=== PATIENT | female | born 1975 | race Hispanic/Latino ===

== ENCOUNTER 2022-04-24 14:02 | Inpatient (IN) | payer BC ==
--- OUTSIDE RECORDS SUMMARY | 2022-04-24 14:09 | XMS REPORT | Continuity of Care Document ---
:1975 Author Organization [facility] t Address [address] [place] [address] Care Team Providers Name Role Phone Emanuel CHIRSTIANSEN, Leisa Primary Care Physician LEISA CASTELLANOS Attending Clinician Unavailable Leisa Castellanos MD Attending Clinician Doctor Unassigned, [place] Attending Clinician Unavailable 2, [facility] Attending Clinician Unavailable Jaden HOOVER, Jori Attending Clinician JORI ESTRADA Attending Clinician Unavailable Payers Payer Name Policy Type Policy Number Effective Date Expiration Date S gemini [facility] - [id number] 2020 00:00:00 OUT OF STATE Problems Condition Condition Condition Status Onset Resolution Last Treating Co mments Source Name Details Category Date Date Treatment Clinician Date Obesity Obesity Disease Active Univers (BMI (BMI 8-09 ity of 30-39.9) 30-39.9) 00:00: [place] 00 Medical Branch Pharyngiti Pharyngiti Disease Active U nivers s due to s due to 5-06 ity of other other 00:00: [place] organism organism 00 Medica l Branch Depression Depression Disease Active U nivers , major, , major, 5-06 [place] of recurrent[place], [place] 00 [place] Anxiety, Anxiety, Disease Active Unive rs generalize generalize 5-06 it y of d d 00:00: [place] 00 Medical Branch Stress at Stress at Disease Active Uni vers work work 11-02 ity of 00:00: [place] [facility] Mood Mood Disease Active Univers changes changes 11-02 ity of 00:00: [place] [facility] Essential Essential Disease Active Uni vers hypertensi hypertensi 09-28 it y of on on 00:00: [place] [facility] Diabetes Diabetes Disease Active Unive rs mellitus mellitus 09-28 ity of type 2 type 2 00:00: [place] with with 00 Medical complicati complicati Br anch ons, ons, uncontroll uncontroll ed ed Mixed Mixed Disease Active Univers hyperlipid hyperlipid 09-28 it y of emia emia 00:00: [place] [facility] Need for Need for Disease Active Unive rs hepatitis hepatitis 09-28 ity of C C 00:00: [place] screening screening 00 [facility] test test Branch PCOS PCOS Disease Active Univers (polycysti (polycysti 09-28 it [place] of c ovarian c ovarian 00:[place] syndrome[place] syndrome) 00 [facility] Encounter Encounter Disease Active Uni vers to to 09-28 [place] of establish establish [place] care with 00 [facility] new doctor new doctor Br anch Need for Need for Disease Active Unive rs Tdap Tdap 09-28 [place] of vaccin[place] [facility] 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 Social History Social Habit Start Date Stop Date Quantity Comments Source Alcohol intake 2022-02-06 2022-02-06 Ex-drinker [place] of 00:00:00 00:00:00 (finding) [facility] Exposure to 2022-01-26 2022-02-05 Not sure [facility] SARS-CoV-2 00:00:00 16:23:00 [facility] (event) Branch Tobacco use and 2022-02-05 2022-02-05 Smokeless tobacco Un iversity of exposure 00:00:00 00:00:00 non-user [facility] Sex Ass[birth year] At [birth year] Universit y of 00:00:00 00:00:00 [facility] Smoking Status Start Date Stop Date Source Never smoked tobacco [facility] Medications Ordered Filled Start Stop Current Ordering Indication Dosage Frequency Signature Comments Components Source Medication Medication Date Date Medication? Clinician (SIG) Name Name Fenofibrate Yes [id number] 160mg Take 1 Univers 160 mg 9-29 tablet by ity of tablet 00:00: mouth in [place] 00 the Medical morning. Branch metFORMIN Yes [id number] 1000mg Take 1 Univers 1,000 mg 9-29 tablet by ity of tablet 00:00: mouth in [place] 00 the Medical morning Branch and 1 tablet in the evening. Take with meals. semaglutide Yes [id number] .5mg inject 0.5 Univers (OZEMPIC) 8-09 mg under ity of 0.25 mg or 00:00: the skin Eleazar as 0.5 mg(2 00 weekly. Medical mg/1.5 mL) Direction: [facility] PnIj Inject 0.25mg qWeek x 4 Weeks; then Inject 0.5mg qWeek x 4Weeks; then inject 1mg qWeek. semaglutide Yes [id number] .5mg inject 0.5 Univers (OZEMPIC) 8-09 mg under ity of 0.25 mg or 00:00: the skin Eleazar as 0.5 mg(2 00 weekly. Medical mg/1.5 mL) Direction: Bra [facility] PnIj Inject 0.25mg qWeek x 4 Weeks; then Inject 0.5mg qWeek x 4Weeks; then inject 1mg qWeek. semaglutide Yes [id number] .5mg inject 0.5 Univers (OZEMPIC) 8-09 mg under ity of 0.25 mg or 00:00: the skin Eleazar as 0.5 mg(2 00 weekly. Medical mg/1.5 mL) Direction: [facility] PnIj Inject 0.25mg qWeek x 4 Weeks; then Inject 0.5mg qWeek x 4Weeks; then inject 1mg qWeek. atorvastati Yes [id number] 40mg Take 1 Univers n 40 mg 6-09 tablet by ity of tablet 00:00: mouth at [place] 00 bedtime. Medical Branch atorvastati Yes [id number] 40mg Take 1 Univers n 40 mg 6-09 tablet by ity of tablet 00:00: mouth at [place] 00 bedtime. Medical Branch atorvastati Yes [id number] 40mg Take 1 Univers n 40 mg 6-09 tablet by ity of tablet 00:00: mouth at [place] 00 bedtime. Medical Branch docusate Yes [id number] 100mg Take 1 Un jaren (COLACE) 6-01 capsule by ity o f 100 mg 00:00: mouth 2 [place] capsule 00 (two) Medical times Branch daily as needed for Constipati on. docusate Yes [id number] 100mg Take 1 Un jaren (COLACE) 6-01 capsule by ity o f 100 mg 00:00: mouth 2 [place] capsule 00 (two) Medical times Branch daily as needed for Constipati on. docusate Yes [id number] 100mg Take 1 Un jaren (COLACE) 6-01 capsule by ity o f 100 mg 00:00: mouth 2 [place] capsule 00 (two) Medical times Branch daily as needed for Constipati on. metFORMIN Yes [id number] 1000mg Take 1 Univers 1,000 mg 5-06 tablet by ity of tablet 00:00: mouth 2 [place] 00 (two) Medical times Branch daily with meals. glimepiride Yes [id number] 4mg Take 1 Univers 4 mg tablet 5-06 tablet by ity of 00:00: mouth [place] 00 daily with Medical breakfast. Branch metoprolol Yes [id number] 50mg Take 1 U nivers succinate 5-06 tablet by ity o f XL 50 mg 24 00:00: mouth [place] hr tablet 00 daily. Medical Branch losartan-hy Yes [id number] 1{tbl} Take 1 Univers drochloroth 5-06 tablet by ity of iazide 00:00: mouth [place] 100-25 mg 00 daily. Medical per tablet Branch amLODIPine 0 Yes [id number] 5mg Take 1 U nivers 5 mg tablet 5-06 tablet by ity of 00:00: mouth [place] 00 daily. Medical Branch Fenofibrate 0 Yes [id number] 160mg Take 1 Univers 160 mg 5-06 tablet by ity of tablet 00:00: mouth [place] 00 daily. Medical Branch semaglutide 0 Yes [id number] 1mg inject 1 Univers (OZEMPIC) 1 5-06 mg under ity of mg/dose (2 00:00: the skin Eleazar as mg/1.5 mL) 00 weekly. Medica l PnIj Branch metFORMIN Yes [id number] 1000mg Take 1 Univers 1,000 mg 5-06 tablet by ity of tablet 00:00: mouth 2 [place] 00 (two) Medical times Branch daily with meals. glimepiride 0 Yes [id number] 4mg Take 1 Univers 4 mg tablet 5-06 tablet by ity of 00:00: mouth [place] 00 daily with Medical breakfast. Branch metoprolol 0 Yes [id number] 50mg Take 1 U nivers succinate 5-06 tablet by ity o f XL 50 mg 24 00:00: mouth [place] hr tablet 00 daily. Medical Branch losartan-hy 0 Yes [id number] 1{tbl} Take 1 Univers drochloroth 5-06 tablet by ity of iazide 00:00: mouth [place] 100-25 mg 00 daily. Medical per tablet Branch amLODIPine 0 Yes [id number] 5mg Take 1 U nivers 5 mg tablet 5-06 tablet by ity of 00:00: mouth [place] 00 daily. Medical Branch Fenofibrate 0 Yes [id number] 160mg Take 1 Univers 160 mg 5-06 tablet by ity of tablet 00:00: mouth [place] 00 daily. Medical Branch semaglutide 0 Yes [id number] 1mg inject 1 Univers (OZEMPIC) 1 5-06 mg under ity of mg/dose (2 00:00: the skin Ele[place] as mg/1.5 mL) 00 weekly. Medica l PnIj Branch glimepiride 0 Yes [id number] 4mg Take 1 Univers 4 mg tablet 5-06 tablet by ity of 00:00: mouth [place] 00 daily with Medical breakfast. Branch metoprolol Yes [id number] 50mg Take 1 U nivers succinate 5-06 tablet by ity o f XL 50 mg 24 00:00: mouth [place] hr tablet 00 daily. Medical Branch losartan-hy Yes [id number] 1{tbl} Take 1 Univers drochloroth 5-06 tablet by ity of iazide 00:00: mouth [place] 100-25 mg 00 daily. Medical per tablet Branch amLODIPine Yes [id number] 5mg Take 1 U nivers 5 mg tablet 5-06 tablet by ity of 00:00: mouth [place] 00 daily. Medical Branch semaglutide Yes [id number] 1mg inject 1 Univers (OZEMPIC) 1 5-06 mg under ity of mg/dose (2 00:00: the skin [place] as mg/1.5 mL) 00 weekly. Medica l PnIj Branch metFORMIN 2021- No [id number] 1000mg Take 1 Univers 1,000 mg 11-02 tablet by ity o f tablet 00:00: 00:00 mouth 2 [place] 00 :00 (two) Medical times Branch daily with meals. Fenofibrate 2021- No [id number] 160mg Take 1 Univers 160 mg 11-02 tablet by ity of tablet 00:00: 00:00 mouth [place] 00 :00 daily. Medical Branch fluconazole Yes [id number] 200mg Take 1 Univers (DIFLUCAN) 4-12 tablet by ity of 200 mg 00:00: mouth [place] tablet 00 daily. Medical Branch fluconazole Yes [id number] 200mg Take 1 Univers (DIFLUCAN) 4-12 tablet by ity of 200 mg 00:00: mouth [place] tablet 00 daily. Medical Branch fluconazole Yes [id number] 200mg Take 1 Univers (DIFLUCAN) 4-12 tablet by ity of 200 mg 00:00: mouth [place] tablet 00 daily. Medical Branch finasteride 0 Yes [id number] 1mg Take 1 Univers 1 mg tablet 4-01 tablet by ity of 00:00: mouth [place] 00 daily. Medical Branch finasteride Yes [id number] 1mg Take 1 Univers 1 mg tablet 4-01 tablet by ity of 00:00: mouth 00 daily. [facility] finasteride 2-0 Yes [id number] 1mg Take 1 Univers 1 mg tablet 4-01 tablet by ity of 00:00: mouth 00 daily. [facility] Immunizations Ordered Filled Immunization Date Status Comments [facility] e Immunization Name Name SARS-COV-2 COVID-19 2020-10-09 Completed Unive rsity of PFIZER VACCINE 00:00:00 [facility] SARS-COV-2 COVID-19 2020-10-09 Completed Unive rsity of PFIZER VACCINE 00:00:00 [facility] SARS-COV-2 COVID-19 2020-10-09 Completed Unive rsity of PFIZER VACCINE 00:00:00 [facility] Procedures Procedure Date / Time Performing Clinician Source Performed MEDICATION CORRESPONDENCE 2022-02-19 05:01:00 Doctor Todd, [facility] [place] [facility] Encounters Start End Encounter Admission Attending Care Care Encounter Source Date/Time Date/Time Type Type Clinicians Facility Department ID 2022-05-09 2022-05-09 [id number] Univers 14:40:00 14:40:00 LEISA almendarez [facility] 2022-03-25 2022-03-25 Telephone [facility] 1.2.840.114 [id number] Univers 00:00:00 00:00:00 Leisa RODRÍGUEZ 350.1.13.10 i ty of [place] PROF[place] [id number] [facility] [address] [facility] 2022-02-19 2022-02-19 Telephone [facility] 1.2.840.114 [id number] Univers 00:00:00 00:00:00 Leisa RODRÍGUEZ 350.1.13.10 i [place] 4[place]2.[place] [id number] [facility] 0[address] [facility] 2022-02-19 2022-02-19 Orders Doctor YATES 1.2.840.114 [id number] Univers 00:00:00 00:00:00 Only UnassignedYAN 350.1.13.10 ity of [place] [facility] 4.2.7.2.686 Ele[place] as [id number] [address] 2022-02-06 2022-02-06 [facility] 1.2.840.114 [id number] Univers 00:00:00 00:00:00 Leisa RODRÍGUEZ 350.1.13.10 i [place] 4[place] [id number] [address] 2022-02-06 2022-02-06 [facility]phone [facility] 1.2.840.114 [id number] Univers 00:00:00 00:00:00 Leisa RODRÍGUEZ 350.1.13.10 i ty of [address] PROF[place] [id number] [address] 2022-02-05 2022-02-05 [id number] Univers 15:40:00 16:51:44 LEISA almendarez [facility] 2022-02-05 2022-02-05 [facility] 1.2.840.114 [id number] Univers 15:40:00 16:51:44 Visit Leisa RODRÍGUEZ 350.1.13.10 i [place]2.[place] [id number] [address] 2022-01-22 2022-01-22 Nut Culler 2, Adc Lab [facility] 1.2.840.114 [id number] Univers 11:00:00 11:15:00 Visit Leisa Castellanos 350.1.13.10 [place] 4[place] [id number] [facility] [address] [facility] 2022-01-22 2022-01-22 [facility] [id number] Univers 11:00:00 11:00:00 LEISA almendarez [facility] 2021-12-25 2021-12-25 Telemedici [facility] 1.2.840.114 [id number] Univers 08:00:00 08:20:00 ne Visit Leisa RODRÍGUEZ 350.1.13.10 ity of [place] 4[place]2.[place].2.[place] PROF[place] [id number] Ct dical NAL 044 [facility] 2021-12-25 2021-12-25 [facility] [id number] Univers 08:00:00 08:00:00 LEISA almendarez [facility] 2021-12-25 2021-12-25 Outpatient R [facility] [id number] Univers 08:00:00 08:00:00 LEISA almendarez [facility] 2021-12-21 2021-12-21 Patient [facility] 1.2.840.114 [id number] Univers 00:00:00 00:00:00 Secure Msg Leisa RODRÍGUEZ 350.1.13.10 [facility]y [facility] 4.2.7.2.[place] [id number] Ct dical NAL [address] [facility] 2021-12-05 2021-12-05 Patient [facility] 1.2.840.114 [id number] Univers 00:00:00 00:00:00 Secure Msg Leisa RODRÍGUEZ 350.1.13.10 ity of [place] 4.2.7.2.[place] PROF[place] [id number] Ct dical NAL 044 [facility] 2021-11-28 2021-11-28 Patient [facility] 1.2.840.114 [id number] Univers 00:00:00 00:00:00 Secure Msg Leisa RODRÍGUEZ 350.1.13.10 ity [facility] 4.2.7.2.[place] PROF[place] [id number] Ct dical NAL [address] [facility] 2021-11-02 2021-11-02 Outpatient R [facility] [id number] Univers 13:20:00 14:17:40 LEISA almendarez [facility] 2021-11-02 2021-11-02 Office [facility] 1.2.840.114 [id number] Univers 13:20:00 14:17:40 Visit Leisa RODRÍGUEZ 350.1.13.10 i ty [facility] 4.2.7.[place] PROF[place] [id number] Ct dical NAL [address] [place] [address] 2021-10-04 2021-10-04 Patient Jaden [facility] 1.2.840.114 [id number] Univers 00:00:00 00:00:00 Secure Msg Jori RODRÍGUEZ 350.1.13.10 ity of [place] 4[place]2.7.2.[place] PROF[place] [id number] Ct dical NAL [address] [place] [address] 2021-10-04 2021-10-04 Patient Jaden [facility] 1.2.840.114 [id number] Univers 00:00:00 00:00:00 Secure Msg Jori RODRÍGUEZ 350.1.13.10 ity [facility] 4.2.7.2.[place] PROFESS[place] [id number] Ct dical NAL [address] [place] [address] 2021-10-01 2021-10-01 Outpatient R JORI ESTRADA [facility] [id number] Univers 15:30:00 16:37:07 JORI ESTRADA itmalinda [facility] 2021-10-01 2021-10-01 Office Jaden [facility] 1.2.840.114 [id number] [facility] Univers 15:30:00 16:37:07 Visit Jori RODRÍGUEZ 350.1.13.10 [place]2.[place] PROFESS[place] [id number] Ct dical NAL [address] [place] [address] 2021-10-01 2021-10-01 Outpatient R JORI ESTRADA [facility] [id number] Univers 10:00:00 10:00:00 JORI ESTRADA itmalinda [facility] 2021-09-28 2021-09-28 Nut Culler 2, Adc Lab [facility] 1.2.840.114 [id number] Univers 11:30:00 11:45:00 Visit Leisa Castellanos 350.1.13.10 ity [facility] 4.2.7.[place] PROF[place] [id number] Ct dical NAL 353 [facility] 2021-09-28 2021-09-28 [facility] [id number] Univers 11:30:00 11:30:00 LEISA malinda [facility] 2021-09-28 2021-09-28 [facility] 1.2.840.114 [id number] Univers 10:00:00 11:00:38 Visit Leisa RODRÍGUEZ 350.1.13.10 i [place] 4[place] PROF[place] [id number] Ct dical NAL 044 [facility] 2021-09-28 2021-09-28 Outpatient R EMANUEL [facility] [id number] [facility] 10:00:00 11:00:38 [facility] 2021-09-28 2021-09-28 [facility] 1.2.840.114 [id number] Univers 00:00:00 00:00:00 Leisa RODRÍGUEZ 350.1.13.10 i [place] 4[place] [id number] [facility] NAL 044 [facility] Results This patient has no known results.
[2022-04-24 14:35] LABS: Urine Blood Negative (Negative); Urine Glucose 2+ (Negative); Urine Protein Negative (Negative); Urine Specific Gravity 1.015 (1.005-1.030)
[2022-04-24] MEDS ORDERED: NA CHLORIDE 0.9% 1,000 ML ONE (14:40)
[2022-04-24] MEDS ORDERED: KETOROLAC 30 MG/ML INJ ONE (14:40)
[2022-04-24] MEDS ORDERED: ONDANSETRON 4 MG/2 ML VIAL ONE (14:40)
[2022-04-24 14:50] LABS: Hematocrit 37.1 % (36.0-45.0); MCV 82.1 fL (80-100); MPV 8.1 fL (7.6-11.3); RBC Red Blood Cell Count 4.51 M/uL (3.86-4.86)
[2022-04-24 14:52] LABS: Urine RBC <5 /HPF (None Seen)
--- NOTE | 2022-04-24 15:02 | RAD REPORT ---
EXAM DESCRIPTION: CT - Stone Protocol - 04/24/2022 2:43 pm CLINICAL HISTORY: flankp ain COMPARISON: CTSTONE PROTOCOL dated 10/11/2014 TECHNIQUE: Axial 3 mm thick images were obtained without oral or IV contrast. The [id number] span s the entirety of the system including uppermost abdomen and lung bases. All CT scans are performed using dose optimization technique as appropriate and may include automated exposure control or mA/KV adjustment according to patient size. FINDINGS: No hydronephrosis is present and no obstructing ureteral calculi. No suspicious renal mass es. Isodense masses and pyelonephritis are not excluded on a stone protocol CT scan. No significant a drenal finding. Bilateral perinephric stranding is similar to the prior study. No nonobstructing calc doessa seen. Mostly contracted urinary bladder shows no suspicious findings. Uterus and right ovary show no suspicious findings. Left ovary is enlarged compared to 2015 study due to in the 2.5 centimeter left ovarian cyst. Liver and spleen show no suspicious findings. Liver attenuation supports mild diffuse fatty infiltrat ion. No gallbladder or biliary tree abnormality. The body and tail of the pancreas appear mildly demetrio ested or edematous compared to the 2015 study. No solid or cystic mass seen on noncontrast imaging. N o abnormal stranding or edema around the uncinate process or head of the pancreas. No suspicious bowel findings. No appendicitis or other active process. No mass or bulky lymphadenopathy. Fat extends into the origin of each inguinal canal. No free air, fr ee fluid pneumatosis. No significant bony abnormality. IMPRESSION: The body and tail of the pancreas in the adjacent fatty tissue show mild edema change wh en compared with the 2015 study. Correlation is needed with any clinical or laboratory findings of mi ld pancreatitis. No hydronephrosis, obstructing calculus or acute finding. Proximally 2.5 centimeter left ovarian cyst. Fatty infiltration of the liver. Isodense masses and pyelonephritis are not excluded on stone protocol technique.
[2022-04-24 15:29] LABS: Blood Morphology Comment NOT SEEN (NOT SEEN)
--- NOTE | 2022-04-24 15:34 | RAD REPORT ---
EXAM DESCRIPTION: RAD - Chest Single View - 04/24/2022 3:17 pm CLINICAL HISTORY: CHEST PAIN COMPARISON: None TECHNIQUE: AP portable chest image was obtained 04/24/2022 3:17 pm . FINDINGS: No focal lung parenchymal process. Body habitus, under penetrated portable technique and s hallow inspiration accentuate heart, vasculature and lung markings. No significant failure or volume overload identified. Heart and vasculature are normal. No measurable pleural effusion and no pneumothorax. No acute bony abnormality seen. No acute aortic findings suspected. IMPRESSION: No acute cardiopulmonary process.
[2022-04-24 15:41] LABS: Platelet Estimate INCR; Platelets, Giant PRESENT
[2022-04-24] MEDS ORDERED: MORPHINE 4 MG/ML SYR ONE ×2 (16:07→18:13)
[2022-04-24 16:45] LABS: Potassium 4.7 mmol/L (3.5-5.1)
[2022-04-24 16:46] LABS: Albumin 3.5 g/dL (3.4-5.0); Bilirubin Total 0.6 mg/dL (0.2-1.0); Protein, Total 8.3 g/dL (6.4-8.2); Troponin High Sensitivity 3.1 (<58.9)
[2022-04-24] MEDS ORDERED: INSULIN -REGULAR HUMAN 50 UNIT/0.5 ML ML ONE ×2 (17:00→23:38)
--- NOTE | 2022-04-24 17:17 | ER ---
Nurse's Notes [facility] Name: Tabatha Berrios Age: 46 yrs Sex: Female : 1975 Arrival Date: 04/24/2022 Time: 14:08 Bed 16 Private MD: Diagnosis: Acute pancreatitis without necrosis or infection, unspecified;Hyperglycemia, unspecified Presentation: 04/24 14:47 Chief complaint: Patient states: DENIZ flank pain - radiates to lower abdomen. C/O right ld1 neck pain. Coronavirus screen: At this time, the client does not indicate any symptoms associated with coronavirus-19. Ebola Screen: No symptoms or risks identified at this time. Initial Sepsis Screen: Does the patient meet any 2 criteria? No. Patient's initial sepsis screen is negative. Does the patient have a suspected source of infection? No. Patient's initial sepsis screen is negative. Risk Assessment: Do you want to hurt yourself or someone else? Patient reports no desire to harm self or others. Onset of symptoms was April 24, 2022. 14:47 Method Of Arrival: Ambulatory ld1 14:47 Acuity: ANGEL 3 ld1 Triage Assessment: 14:17 General: Appears in no apparent distress. comfortable, Behavior is calm, cooperative, ld1 appropriate for age. Pain: Complains of pain in low back area, right lower quadrant and left lower quadrant Pain radiates to abdomen Pain currently is 6 out of 10 on a pain scale. Quality of pain is described as throbbing, Pain began suddenly, Is continuous. EENT: No signs and/or symptoms were reported regarding the EENT system. Neuro: Level of Consciousness is awake, alert, obeys commands, Oriented to person, place, time, situation. Cardiovascular: Capillary refill < 3 seconds Patient's skin is warm and dry. Respiratory: Airway is patent Respiratory effort is even, unlabored. GI: Abdomen is round non-distended, Reports lower abdominal pain, upper abdominal pain. GI: Reports nausea. : No signs and/or symptoms were reported regarding the genitourinary system. Derm: No signs and/or symptoms reported regarding the dermatologic system. Musculoskeletal: No signs and/or symptoms reported regarding the musculoskeletal system. 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 - Social history:: Smoking status: Patient denies any tobacco usage or history of. Patient/guardian denies using alcohol. Screenin:33 Abuse screen: Denies threats or abuse. Nutritional screening: No deficits noted. ap3 Tuberculosis screening: No symptoms or risk factors identified. Fall Risk None identified. Assessment: 19:00 General: Appears in no apparent distress. uncomfortable, Behavior is calm, cooperative, jb4 appropriate for age. Pain: Complains of pain in low back area and abdomen Pain does not radiate. Pain currently is 8 out of 10 on a pain scale. Neuro: Level of Consciousness is awake, alert, obeys commands, Oriented to person, place, time, situation. Cardiovascular: Patient's skin is warm and dry. Respiratory: Airway is patent Respiratory effort is even, unlabored, Respiratory pattern is regular. GI: Abdomen is round non-distended, obese. : No signs and/or symptoms were reported regarding the genitourinary system. EENT: No signs and/or symptoms were reported regarding the EENT system. Derm: Skin is intact, Skin is pink, warm \T\ dry. Musculoskeletal: Circulation, motion, and sensation intact. Range of motion: intact in all extremities. 20:00 Reassessment: Patient appears in no apparent distress at this time. Patient and/or jb4 family updated on plan of care and expected duration. Pain level reassessed. Patient is alert, oriented x 3, equal unlabored respirations, skin warm/dry/pink. 21:22 Reassessment: Patient appears in no apparent distress at this time. Patient and/or jb4 family updated on plan of care and expected duration. Pain level reassessed. Patient is alert, oriented x 3, equal unlabored respirations, skin warm/dry/pink. Vital Signs: 14:17 BP 175 / 107; Pulse 101; Resp 18; Temp 97.3(O); Pulse Ox 100% on R/A; Weight 95.25 kg; ld1 Height 5 ft. 3 in. (160.02 cm); Pain 6/10; 16:18 BP 154 / 97; Pulse 97; Pulse Ox 100% on R/A; ap3 17:32 BP 152 / 98; Pulse 87; Pulse Ox 98% on R/A; ap3 19:00 BP 142 / 78; Pulse 95; Resp 18; Pulse Ox 98% on R/A; jb4 19:45 BP 139 / 95; Pulse 101; Resp 18; Pulse Ox 93% on R/A; jb4 21:00 BP 137 / 95; Pulse 98; Resp 18; Pulse Ox 95% on 2 lpm NC; jb4 14:17 Body Mass Index 37.20 (95.25 kg, 160.02 cm) ld1 21:00 Desats while sleeping jb4 ED Course: 14:08 Patient arrived in ED. rg4 14:09 Twyla Issa FNP-C is PHCP. kb 14:09 Bennett Cid DO is Attending Physician. kb 14:17 Arm band placed on right wrist. ld1 14:35 Zakiya Tejada, CLAIRE is Primary Nurse. ap3 14:36 Urine Microscopic Only Sent. zm 14:45 CT Stone Protocol In Process Unspecified. EDMS 14:48 Triage completed. ld1 15:19 Chest Single View XRAY In Process Unspecified. EDMS 17:16 Gary Kaiser MD is Hospitalizing Provider. kb 17:33 Patient has correct armband on for positive identification. ap3 21:23 No provider procedures requiring assistance completed. Patient admitted, IV remains in jb4 place. Administered Medications: 14:58 Drug: NS 0.9% 1000 ml Route: IV; Rate: 1 bolus; Site: left antecubital; ap3 19:10 Follow up: Response: No adverse reaction; IV Status: Completed infusion; IV Intake: lg3 1000ml 14:58 Drug: Zofran (Ondansetron) 4 mg Route: IVP; Site: left antecubital; ap3 18:23 Follow up: Response: No adverse reaction; Nausea is decreased ap3 14:58 Drug: Ketorolac 15 mg Route: IVP; Site: left antecubital; ap3 16:11 Follow up: Response: No adverse reaction ap3 16:10 Drug: morphine 4 mg Route: IVP; Infused Over: 4 mins; Site: left antecubital; ap3 17:09 Follow up: Response: No adverse reaction; Pain is unchanged, physician notified ap3 17:04 Drug: Insulin Regular Human 10 units {Co-Signature: db (Theresa Almaguer RN).} Route: ap3 IVP; Site: left antecubital; 18:22 Follow up: Response: No adverse reaction ap3 18:16 Drug: morphine 4 mg Route: IVP; Infused Over: 4 mins; Site: left antecubital; ap3 04/25 06:46 Follow up: Response: No adverse reaction; Marked relief of symptoms; RASS: Alert and lg3 Calm (0) 04/24 19:29 Drug: Dilaudid (HYDROmorphone) 0.5 mg Route: IVP; Site: left antecubital; jb4 04/25 06:46 Follow up: Response: No adverse reaction; Marked relief of symptoms; RASS: Alert and lg3 Calm (0) Medication: 04/24 17:33 VIS not applicable for this client. ap3 Intake: 19:10 IV: 1000ml; Total: 1000ml. lg3 Outcome: 17:17 Decision to Hospitalize by Provider. kb 21:23 Admitted to ER Hold. Please see [facility] for further documentation. jb4 21:23 Condition: stable 21:23 Discharge instructions given to patient, Instructed on the need for admit, Demonstrated understanding of instructions. 04/25 17:09 Admitted to ICU accompanied by nurse, accompanied by tech, via wheelchair, room 8, on ko1 monitor, with chart, Report called to Leonor Condition: stable 17:11 Patient left the ED. ko1 Signatures: Dispatcher [employer] EDMS Twyla Issa FNP-C FNP-Nubia Wylie James, RN RN jb4 Zakiya Tejada RN RN ap3 Aletha Rosenbaum RN RN lg3 Lee Ann Sparks RN RN carol1 Beverly Taveras Kathy RN RN ko1 Theresa echevarria
--- NOTE | 2022-04-24 17:17 | EDPHYS ---
Physician Documentation [facility] Name: Tabatha Berrios Age: 46 yrs Sex: Female : 1975 Arrival Date: 04/24/2022 Time: 14:08 Bed 16 Private MD: ED Physician Bennett Cid HPI: 04/24 17:26 This 46 yrs old Female presents to ER via Ambulatory with complaints of kb Nausea, Back Pain, Flank Pain. 17:27 The patient presents with abdominal pain in the left upper quadrant. Onset: The kb symptoms/episode began/occurred this morning. The symptoms radiate to left back. Associated signs and symptoms: none. The symptoms are described as constant. Modifying factors: The symptoms are alleviated by nothing, the symptoms are aggravated by nothing. Severity of pain: At its worst the pain was moderate in the emergency department the pain is unchanged. The patient has not experienced similar symptoms in the past. The patient has not recently seen a physician. Patient reports left upper quadrant pain that radiates to the back.. 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 - Social history:: Smoking status: Patient denies any tobacco usage or history of. Patient/guardian denies using alcohol. ROS: 17:27 Constitutional: Negative for fever, chills, and weight loss. kb 17:27 Abdomen/GI: Positive for abdominal pain, Negative for nausea, vomiting, and diarrhea. 17:27 All other systems are negative. Exam: 17:26 Constitutional: This is a well developed, well nourished patient who is awake, alert, kb and in no acute distress. Head/Face: Normocephalic, atraumatic. ENT: Moist Mucous membranes Cardiovascular: Regular rate and rhythm with a normal S1 and S2. No gallops, murmurs, or rubs. No pulse deficits. Respiratory: Respirations even and unlabored. No increased work of breathing. Talking in full sentences Skin: Warm, dry with normal turgor. Normal color. MS/ Extremity: Pulses equal, no cyanosis. Neurovascular intact. Full, normal range of motion. Neuro: Awake and alert, GCS 15, oriented to person, place, time, and situation. Moves all extremities. Normal gait. Psych: Awake, alert, with orientation to person, place and time. Behavior, mood, and affect are within normal limits. 17:26 Abdomen/GI: Inspection: obese Bowel sounds: normal, Palpation: soft, in all quadrants, moderate abdominal tenderness, in the left upper quadrant. Vital Signs: 14:17 BP 175 / 107; Pulse 101; Resp 18; Temp 97.3(O); Pulse Ox 100% on R/A; Weight 95.25 kg; ld1 Height 5 ft. 3 in. (160.02 cm); Pain 6/10; 16:18 BP 154 / 97; Pulse 97; Pulse Ox 100% on R/A; ap3 17:32 BP 152 / 98; Pulse 87; Pulse Ox 98% on R/A; ap3 19:00 BP 142 / 78; Pulse 95; Resp 18; Pulse Ox 98% on R/A; jb4 19:45 BP 139 / 95; Pulse 101; Resp 18; Pulse Ox 93% on R/A; jb4 21:00 BP 137 / 95; Pulse 98; Resp 18; Pulse Ox 95% on 2 lpm NC; jb4 14:17 Body Mass Index 37.20 (95.25 kg, 160.02 cm) ld1 21:00 Desats while sleeping jb4 MDM: 14:23 Patient medically screened. kb 17:15 Data reviewed: vital signs, nurses notes. Data interpreted: Pulse oximetry: on room air kb is 100 %. Interpretation: normal. Counseling: I had a detailed discussion with the patient and/or guardian regarding: the historical points, exam findings, and any diagnostic results supporting the discharge/admit diagnosis, lab results, radiology results, the need for further work-up and treatment in the hospital. 17:26 ED course: Discussed diagnosis with patient. Patient states her brother who also has kb problems with pancreatitis due to elevated triglycerides. States she has never had it before. Denies alcohol use.. 04/24 14:23 Order name: CBC with Diff; Complete Time: 15:57 kb 04/24 14:23 Order name: CMP; Complete Time: 16:56 kb 04/24 14:23 Order name: Lipase; Complete Time: 16:56 kb 04/24 14:23 Order name: Urine Microscopic Only; Complete Time: 14:53 kb 04/24 14:23 Order name: Troponin HS; Complete Time: 16:56 kb 04/24 14:36 Order name: Urine Dipstick-Ancillary; Complete Time: 14:37 EDMS 04/24 14:37 Order name: Urine --Ancillary (enter results); Complete Time: 20:21 bd 04/24 15:29 Order name: Manual Differential; Complete Time: 15:57 EDMS 04/24 17:35 Order name: SARS RAPID; Complete Time: 18:41 ap3 04/24 18:15 Order name: Lipid Profile; Complete Time: 01:56 kb 04/24 20:42 Order name: LDL, Direct; Complete Time: 01:56 EDMS 04/24 23:42 Order name: Glucose, Ancillary Testing; Complete Time: 00:16 EDMS 04/25 02:52 Order name: Hemoglobin A1c; Complete Time: 04:33 EDMS 04/25 04:27 Order name: CBC with Automated Diff; Complete Time: 04:33 EDMS 04/24 14:23 Order name: CT Stone Protocol; Complete Time: 15:04 kb 04/24 14:23 Order name: Chest Single View XRAY; Complete Time: 15:35 kb 04/25 05:02 Order name: Glucose, Ancillary Testing; Complete Time: 05:11 EDMS 04/25 05:53 Order name: Comprehensive Metabolic Panel; Complete Time: 11:26 EDMS 04/25 05:53 Order name: T4 Free; Complete Time: 11:26 EDMS 04/25 05:53 Order name: Lipase; Complete Time: 11:26 EDMS 04/25 05:53 Order name: Thyroid Stimulating Hormone; Complete Time: 11:26 EDMS 04/25 08:32 Order name: Triglycerides Level; Complete Time: 11:26 EDMS 04/25 08:43 Order name: LDL, Direct; Complete Time: 11: EDMS 04/25 11:18 Order name: Glucose, Ancillary Testing; Complete Time: 11:26 EDMS 04/25 13:14 Order name: Glucose, Ancillary Testing; Complete Time: 13:16 EDMS 04/25 14:08 Order name: Glucose, Ancillary Testing; Complete Time: 14:11 EDMS 04/25 15:18 Order name: Glucose, Ancillary Testing; Complete Time: 15:27 EDMS 04/25 15:53 Order name: Glucose, Ancillary Testing; Complete Time: 15:55 EDMS 04/24 14:23 Order name: IV Saline Lock; Complete Time: 19:10 kb 04/24 14:23 Order name: Labs collected and sent; Complete Time: 19:10 kb 04/24 14:23 Order name: Urine Dipstick-Ancillary (obtain specimen); Complete Time: 14:36 kb 04/24 16:04 Order name: Labs - recollect needed: recollect green top; Complete Time: 16:28 bd Administered Medications: 14:58 Drug: NS 0.9% 1000 ml Route: IV; Rate: 1 bolus; Site: left antecubital; ap3 19:10 Follow up: Response: No adverse reaction; IV Status: Completed infusion; IV Intake: lg3 1000ml 14:58 Drug: Zofran (Ondansetron) 4 mg Route: IVP; Site: left antecubital; ap3 18:23 Follow up: Response: No adverse reaction; Nausea is decreased ap3 14:58 Drug: Ketorolac 15 mg Route: IVP; Site: left antecubital; ap3 16:11 Follow up: Response: No adverse reaction ap3 16:10 Drug: morphine 4 mg Route: IVP; Infused Over: 4 mins; Site: left antecubital; ap3 17:09 Follow up: Response: No adverse reaction; Pain is unchanged, physician notified ap3 17:04 Drug: Insulin Regular Human 10 units {Co-Signature: db (Theresa Almaguer RN).} Route: ap3 IVP; Site: left antecubital; 18:22 Follow up: Response: No adverse reaction ap3 18:16 Drug: morphine 4 mg Route: IVP; Infused Over: 4 mins; Site: left antecubital; ap3 04/25 06:46 Follow up: Response: No adverse reaction; Marked relief of symptoms; RASS: Alert and lg3 Calm (0) 04/24 19:29 Drug: Dilaudid (HYDROmorphone) 0.5 mg Route: IVP; Site: left antecubital; jb4 04/25 06:46 Follow up: Response: No adverse reaction; Marked relief of symptoms; RASS: Alert and lg3 Calm (0) Disposition: 04/24 19:39 Co-signature as Attending Physician, Bennett BUNCH was immediately available on-site ms3 in the Emergency Department for consultation in the care of the patient.. Disposition Summary: 04/24/22 17:17 Hospitalization Ordered Hospitalization Status: Inpatient Admission kb Provider: Gary Kaiser Condition: Stable kb Problem: new kb Symptoms: are unchanged kb Bed/Room Type: Standard kb Location: Intensive Care Unit(04/25/22 16:08) em1 Room Assignment: 5-(04/25/22 16:08) em1 Diagnosis - Acute pancreatitis without necrosis or infection, unspecified kb - Hyperglycemia, unspecified kb Forms: - Medication Reconciliation Form kb - SBAR form kb Signatures: Dispatcher [employer] EDMS Twyla Issa, CONTROL ELECTRICIAN-C CONTROL ELECTRICIAN-Ckb Sara Simeon Eric em1 Art Zhu CONTROL ELECTRICIAN-C CONTROL ELECTRICIAN-Cla1 Montana Rothman, RN RN karla4 Zakiya Tejada RN RN [email or web address] Dena Villaseñor, RN RN eb1 Bennett Cid DO DO ms3 Lee Ann Sparks RN RN ld1 Aletha Rosenbaum RN lg3 Theresa Almaguer RN db Corrections: (The following items were deleted from the chart) 18:45 17:17 Telemetry/MedSurg (Inpatient) kb eb1 18:45 17:17 kb eb1 04/25 16:08 04/24 18:45 [facility] ER HOLD eb1 em1 04/25 16:08 04/24 18:45 ERHOLD- eb1 em1
[2022-04-24 18:35] LABS: SARS-CoV-2 Antigen Rapid Res Negative (Negative)
[2022-04-24] MEDS ORDERED: HYDROMORPHONE HCL 0.5 MG/0.5 ML INJ ONE ×2 (19:18→23:47)
--- NOTE | 2022-04-24 19:39 | P.HP ---
Certification for Inpatient Patient admitted to: Inpatient With expected LOS: >2 Midnights Patient will require the following post-hospital care: None Practitioner: I am a practitioner with admitting privileges, knowledge of patient current condition, hospital course, and medical plan of care. Services: Services provided to patient in accordance with Admission requirements found in Title 42 Section 412.3 of the Code of Federal Regulations Patient History Date of Service: 04/24/22 Reason for admission: Acute pericarditis History of Present Illness: 46-year-old female with history of diabetes mellitus type [id number], hypertension, hyperlipidemia, hypertriglyceridemia presents to the emergency department for severe epigastric pain that began today, pain radiates to her back. She is evaluated in the emergency department her labs were significant for sodium 130 chloride 97 glucose 470 lipase 11,666 CT abdomen pelvis performed without IV contrast revealed the body and tail the pancreas and the adjacent fatty tissue showed mild edema change when compared to 2018 study correlation is needed with any clinical laboratory findings of mild pancreatitis. Lipid panel pending, she reports her brother has chronic pancreatitis related to hypertriglyceridemia. ED provider wishes to admit for further evaluation and management of acute pancreatitis. Allergies No Known Drug Allergies Allergy (Unverified 10/14/14 00:04) Unknown - Past Medical/Surgical History -: Diabetes mellitusnot insulin-dependent -: Hyperlipidemia/hypertriglyceridemia -: Hypertension -: None Psychosocial/ Personal History: Patient is employed at [employer], lives at home with mother/family - Family History Brother -: Hypertension, Diabetes, Other (see notes) (Pancreatitis) Sister -: Hypertension, Diabetes - Social History Smoking Status: Never smoker Alcohol use: No CD- Drugs: No Caffeine use: Yes Place of Residence: Home Review of Systems 10-point ROS is otherwise unremarkable Gastrointestinal: Nausea, Abdominal Pain Physical Examination - Physical Exam General: Alert, In no apparent distress, Oriented x3 HEENT: Atraumatic, PERRLA, Mucous membr. moist/pink, EOMI, Sclerae nonicteric Neck: Supple, 2+ carotid pulse no bruit, No LAD, Without JVD or thyroid abnormality Respiratory: Clear to auscultation bilaterally, Normal air movement Cardiovascular: Regular rate/rhythm, Normal S1 S2 Capillary refill: <2 Seconds Gastrointestinal: Normal bowel sounds, Tenderness (Moderate epigastric tendern ess) Musculoskeletal: No tenderness Integumentary: No rashes Neurological: Normal speech, Normal strength at 5/5 x4 extr, Normal tone, Normal affect Lymphatics: No axilla or inguinal lymphadenopathy - Studies Laboratory Data (last 24 hrs) 04/24/22 16:22: Sodium 130 L, Potassium 4.7, BUN 15, Creatinine 0.89, Glucose 470 H*, Total Bilirubin 0.6, AST 69 H, ALT 37, Alkaline Phosphatase 74, Lipase 04722 H 04/24/22 14:34: WBC 8.70, Hgb 15.2 H, Hct 37.1, Plt Count 348 Assessment and Plan - Plan Assessment: Acute pancreatitis Diabetes type [id number]-bvadprz-fofyizzqo with hyperglycemia Hyperlipidemia/hypertriglyceridemia Hypertension Plan: Acute pancreatitis: Unknown etiology, family history of hypertriglyceridemia induced pancreatitis. Patient does report history of hypertriglyceridemia lipid panel ordered and pending. No significant right upper quadrant tenderness, LFTs within normal limits, CT findings without concern for cholecystitis. Patient denies alcohol use. NPO, IVF, as needed pain medications and antiemetics, daily lipase level. Follow lipid panel may require insulin drip if there is significant hypertriglyceridemia. Diabetes type [id number]-szyigqe-[id number] with hyperglycemia: Every 6 hours Accu- Chek, sliding scale insulin. A1c in the morning. If triglycerides significantly elevated would require insulin drip for management. Hyperlipidemia/hypertriglyceridemia: Lipid panel pending, patient takes fenofibrate, atorvastatin at home. Continues medications when she is tolerating p.o. Again require insulin drip if there are significant hypertriglyceridemia. Hypertension: Hold oral medication. DVT PPX: Lovenox Code status: Full Discharge Plan: Home Plan to discharge in: Greater than 2 days - Advance Directives Does patient have a Living Will: No Does patient have a Durable POA for Healthcare: No - Code Status/Comfort Care Code Status Assessed: Yes (Full code) Critical Care: No Time Spent Managing Pts Care (In Minutes): 70
[2022-04-24 19:56] LABS: Urine Specific Gravity/Preg 1.015 (1.005-1.030)
[2022-04-24 20:28] LABS: HDL Cholesterol 14 mg/dL (40-60)
[2022-04-24 20:41] LABS: LDL, Direct 108 mg/dL (100-129)
[2022-04-24] MEDS ORDERED: INSULIN -REGULAR HUMAN 50 UNIT/0.5 ML ML SQ SCH (21:17)
[2022-04-24] MEDS: Ringers Lactate 1,000 ML IV SCH (21:17)
[2022-04-24] MEDS ORDERED: Ringers Lactate 1,000 ML IV ONE (21:32)
[2022-04-24] MEDS: INSULIN -REGULAR HUMAN 50 UNIT/0.5 ML ML SQ SCH (23:40)
[2022-04-25] MEDS: HYDROMORPHONE HCL 0.5 MG/0.5 ML INJ IV PRN ×5 (00:03→20:33)
[2022-04-25] MEDS ORDERED: Ringers Lactate 1,000 ML IV ONE (03:34)
[2022-04-25 03:56] LABS: Absolute Lymphocytes (CBC) 0.6 K/uL (0.7-4.9); Hematocrit 35.3 % (36.0-45.0); Lymphocytes % 4.2 % (15.3-44.8); MCV 81.3 fL (80-100); MPV 8.8 fL (7.6-11.3); RBC Red Blood Cell Count 4.34 M/uL (3.86-4.86)
[2022-04-25] MEDS: Ringers Lactate 1,000 ML IV SCH ×4 (03:57→23:57)
[2022-04-25] MEDS ORDERED: HYDROMORPHONE HCL 0.5 MG/0.5 ML INJ ONE ×3 (05:00→15:30)
[2022-04-25] MEDS ORDERED: INSULIN -REGULAR HUMAN 50 UNIT/0.5 ML ML ONE (05:01)
[2022-04-25] MEDS: INSULIN -REGULAR HUMAN 50 UNIT/0.5 ML ML SQ SCH ×2 (05:10)
[2022-04-25 05:50] LABS: Albumin 2.8 g/dL (3.4-5.0); Bilirubin Total 0.8 mg/dL (0.2-1.0); Protein, Total 7.2 g/dL (6.4-8.2); Thyroid Stimulating Hormone 0.459 uIU/mL (0.360-3.740)
[2022-04-25] MEDS ORDERED: INFLUENZA VACCINE (for 6+ mo) 0.5 ML DOSE IMVAC ONE (08:00)
[2022-04-25 08:42] LABS: LDL, Direct 111 mg/dL (100-129)
[2022-04-25] MEDS: ENOXAPARIN 40 MG/0.4 ML SQ SCH (08:43)
[2022-04-25] MEDS: ONDANSETRON 4 MG/2 ML VIAL IV PRN ×3 (08:44→22:01)
[2022-04-25] MEDS ORDERED: ONDANSETRON 4 MG/2 ML VIAL ONE ×2 (08:47→15:30)
[2022-04-25] MEDS ORDERED: ENOXAPARIN 40 MG/0.4 ML SQ ONE (08:48)
[2022-04-25] MEDS ORDERED: GLUCAGON 1 MG/VIAL IM PRN (10:47)
[2022-04-25] MEDS ORDERED: D50W 25 GM/50 ML SYRINGE IV PRN (10:47)
[2022-04-25] MEDS ORDERED: D10W 125 ML IV PRN (10:54)
[2022-04-25] MEDS: D5.45NS W/KCL 20MEQ 20 MEQ/1,000 ML BAG IV SCH ×3 (11:00→20:29)
[2022-04-25] MEDS ORDERED: D5.45NS W/KCL 20MEQ 1,000 ML IV ONE (11:30)
[2022-04-25] MEDS: INSULIN -REGULAR HUMAN 100 UNIT in NA CHLORIDE 0.9% 100 ML IV SCH ×2 (12:05→13:07)
--- NOTE | 2022-04-25 17:09 | P.PN ---
Date of Service: 04/25/22 Subjective: pain improved pain meds helping starting to get hungry ROS: 10 point ROS as noted above, otherwise negative Physical exam GEN: Alert, oriented, NAD, obese HEENT: Normal conjunctiva, sclera anicteric CV: Regular rate and rhythm, no edema Pulm: Nonlabored respirations on room air ABD: Soft, moderate-severe tenderness in epigastrium, mild tenderness in LLQ Neuro: Normal speech, normal affect Problem List Acute pancreatitis secondary to hypertriglyceridemia Diabetes type [id number]-vsrlleqmv with hyperglycemia Hyperlipidemia/hypertriglyceridemia Hypertension Patient feels some improvement in her pain Advance to some sips with ice chips Repeat lipase improving Triglycerides significantly increased Start insulin drip, change LR to dextrose containing fluids Pain medication, antiemetics as needed VTE: Lovenox Code: Full Dispo: Home, 2 to 3 days continue ICU level of care Time Spent Managing Pts Care (In Minutes): 35
[2022-04-25 20:15] LABS: LDL, Direct 35 mg/dL (100-129)
[2022-04-26] MEDS: HYDROMORPHONE HCL 0.5 MG/0.5 ML INJ IV PRN ×6 (00:07→21:15)
[2022-04-26] MEDS ORDERED: INSULIN -REGULAR HUMAN 50 UNIT/0.5 ML ML ONE (03:03)
[2022-04-26] MEDS ORDERED: NA CHLORIDE 0.9% 100 ML IV ONE (03:03)
[2022-04-26] MEDS: INSULIN -REGULAR HUMAN 100 UNIT in NA CHLORIDE 0.9% 100 ML IV SCH ×2 (03:04→17:44)
[2022-04-26] MEDS: D5.45NS W/KCL 20MEQ 20 MEQ/1,000 ML BAG IV SCH ×5 (03:21→23:00)
[2022-04-26 05:22] LABS: Absolute Lymphocytes (CBC) 0.9 K/uL (0.7-4.9); Hematocrit 36.6 % (36.0-45.0); Lymphocytes % 6.4 % (15.3-44.8); MCV 81.7 fL (80-100); MPV 7.9 fL (7.6-11.3); RBC Red Blood Cell Count 4.47 M/uL (3.86-4.86)
[2022-04-26] MEDS: Ringers Lactate 1,000 ML IV SCH ×3 (05:22→19:57)
[2022-04-26 05:56] LABS: LDL, Direct 53 mg/dL (100-129)
[2022-04-26 06:02] LABS: Albumin 2.2 g/dL (3.4-5.0); Bilirubin Total 0.7 mg/dL (0.2-1.0); Magnesium 1.7 mg/dL (1.8-2.4); Protein, Total 6.6 g/dL (6.4-8.2)
[2022-04-26 06:05] LABS: Potassium 3.6 mmol/L (3.5-5.1)
--- NOTE | 2022-04-26 06:18 | P.PN ---
Date of Service: 04/26/22 Subjective: feeling better, but still in pain hungry +flatus ROS: 10 point ROS as noted above, otherwise negative Physical exam GEN: Alert, oriented, NAD, obese HEENT: Normal conjunctiva, sclera anicteric CV: Regular rate and rhythm, no edema Pulm: Nonlabored respirations on room air ABD: Soft, moderate tenderness in epigastrium, mild-moderate tenderness in LLQ Neuro: Normal speech, normal affect Problem List Acute pancreatitis secondary to hypertriglyceridemia Diabetes type [id number]-ycnelqi-hjknvzxpv with hyperglycemia Hyperlipidemia/hypertriglyceridemia Hypertension LLQ pain L ovarian cyst Patient feels some improvement in her epigastric pain; hungry tolerated ice chips, advance to clears Repeat lipase improving Triglycerides improved, now increased again titrate insulin drip, on d5 1/2NS increase IVF rate LLQ pain, CT noted 2.5cm ovarian cyst, will obtain U/S to further evaluate. Patient noted h/o of ?PCOS, and irregular periods, recently more crampy pain Pain medication, antiemetics as needed VTE: Lovenox Code: Full Dispo: Home, 2 to 3 days continue ICU level of care while on drip Time Spent Managing Pts Care (In Minutes): 35
[2022-04-26] MEDS: ENOXAPARIN 40 MG/0.4 ML SQ SCH (08:09)
[2022-04-26] MEDS: ONDANSETRON 4 MG/2 ML VIAL IV PRN ×3 (09:49→23:00)
--- NOTE | 2022-04-26 10:01 | RAD REPORT ---
EXAM DESCRIPTION: US - Transvaginal Study Probe - 04/26/2022 9:42 am CLINICAL HISTORY: Pelvic pain/left ovarian cysts COMPARISON: CT abdomen April 24, 2022 FINDINGS: The uterus measures 8 x 3 x 4 cm. A fibroid is not seen. The endometrial stripe measures 8 millimeters. A fibroid is not seen. Cervical nabothian cysts. 3.6 centimeter left ovarian cyst. Blood flow is present to the left ovary. Right ovary not seen secon jennifer to overlying bowel gas The right and left adnexa unremarkable No significant free fluid is seen. IMPRESSION: 3.6 centimeter left ovarian cyst
[2022-04-26 19:30] LABS: LDL, Direct 52 mg/dL (100-129)
[2022-04-26] MEDS: HYDROMORPHONE HCL 1 MG/ML INJ IV PRN (23:00)
[2022-04-27] MEDS: Ringers Lactate 1,000 ML IV SCH (00:55)
[2022-04-27] MEDS: HYDROMORPHONE HCL 1 MG/ML INJ IV PRN ×5 (04:19→21:56)
[2022-04-27] MEDS: ONDANSETRON 4 MG/2 ML VIAL IV PRN ×3 (04:19→19:50)
[2022-04-27] MEDS: D5.45NS W/KCL 20MEQ 20 MEQ/1,000 ML BAG IV SCH ×4 (04:20→19:42)
[2022-04-27 04:31] LABS: Absolute Lymphocytes (CBC) 1.1 K/uL (0.7-4.9); Lymphocytes % 8.2 % (15.3-44.8); MCV 82.2 fL (80-100); MPV 7.1 fL (7.6-11.3); RBC Red Blood Cell Count 4.26 M/uL (3.86-4.86)
[2022-04-27 04:42] VITALS: BMI 40.2
[2022-04-27 04:54] LABS: Bilirubin Total 0.6 mg/dL (0.2-1.0); Magnesium 1.9 mg/dL (1.8-2.4); Potassium 3.4 mmol/L (3.5-5.1); Protein, Total 6.6 g/dL (6.4-8.2)
[2022-04-27 05:09] LABS: LDL, Direct 70 mg/dL (100-129)
--- NOTE | 2022-04-27 06:10 | P.PN ---
Date of Service: 04/27/22 Subjective: last night, felt dilaudid was helping as much, increased to 1mg from 0.5 feels better this morning, less tachycardic pain in epigastrium and LLQ, +flatus ROS: 10 point ROS as noted above, otherwise negative Physical exam GEN: Alert, oriented, NAD, obese HEENT: Normal conjunctiva, sclera anicteric CV: sinus tachycardia (105), no edema Pulm: Nonlabored respirations on room air ABD: Soft, moderate tenderness in epigastrium, mild-moderate tenderness in LLQ Neuro: Normal speech, normal affect Problem List Acute pancreatitis secondary to hypertriglyceridemia Diabetes type [id number] with hyperglycemia Hyperlipidemia/hypertriglyceridemia Hypertension LLQ pain L ovarian cyst did not tolerate CLD much yesterday pain medication increased tolerating ice chips / sips of water lipase improving TG labile, but overall trending down continue insuliln drip continue d5 1/2NS if unable to advance diet, consider PPN tomorrow LLQ pain reviewed CT, likely extension of inflammatory changes from tail of pancreas incidental ovarian cyst noted on CT - 2.5cm transvaginal U/S: 3.5 cm, normal blood flow to ovary, no other acute findings Pain medication, antiemetics as needed VTE: Lovenox Code: Full Dispo: Home, ~2-3 days continue ICU level of care while on drip Time Spent Managing Pts Care (In Minutes): 35
[2022-04-27] MEDS: INSULIN -REGULAR HUMAN 100 UNIT in NA CHLORIDE 0.9% 100 ML IV SCH ×2 (07:39→20:39)
[2022-04-27] MEDS: ENOXAPARIN 40 MG/0.4 ML SQ SCH (08:30)
[2022-04-27] MEDS ORDERED: POTASSIUM CL SA 10 MEQ TAB PO ONE (09:00)
[2022-04-27] MEDS ORDERED: POTASSIUM 25 MEQ EFFERV TAB PO ONE (09:00)
--- NOTE | 2022-04-27 11:11 | P.PN ---
Date of Service: 04/27/22 Subjective: last night, felt dilaudid was helping as much, increased to 1mg from 0.5 feels better this morning, less tachycardic pain in epigastrium and LLQ, +flatus ROS: 10 point ROS as noted above, otherwise negative Physical exam GEN: Alert, oriented, NAD, obese HEENT: Normal conjunctiva, sclera anicteric CV: sinus tachycardia (105), no edema Pulm: Nonlabored respirations on room air ABD: Soft, moderate tenderness in epigastrium, mild-moderate tenderness in LLQ Neuro: Normal speech, normal affect Problem List Acute pancreatitis secondary to hypertriglyceridemia Diabetes type [id number] with hyperglycemia Hyperlipidemia/hypertriglyceridemia Hypertension LLQ pain L ovarian cyst did not tolerate CLD much yesterday pain medication increased tolerating ice chips / sips of water lipase improving tolerated ice chips, advance to clears Repeat lipase improving Triglycerides improved, now increased again titrate insulin drip, on d5 1/2NS increase IVF rate LLQ pain, CT noted 2.5cm ovarian cyst, will obtain U/S to further evaluate. Patient noted h/o of ?PCOS, and irregular periods, recently more crampy pain Pain medication, antiemetics as needed VTE: Lovenox Code: Full Dispo: Home, 2 to 3 days continue ICU level of care while on drip Time Spent Managing Pts Care (In Minutes): 35
[2022-04-27] MEDS ORDERED: BISACODYL 10 MG RECTAL SUPP PR PRN (11:47)
[2022-04-27] MEDS: PROMETHAZINE INJ 25 MG/ML AMP IV PRN ×2 (12:19→21:55)
[2022-04-27] MEDS: DOCUSATE NA 100 MG CAP PO SCH (19:42)
[2022-04-28] MEDS: D5.45NS W/KCL 20MEQ 20 MEQ/1,000 ML BAG IV SCH ×2 (01:27→06:07)
[2022-04-28] MEDS: HYDROMORPHONE HCL 1 MG/ML INJ IV PRN ×2 (02:30→06:42)
[2022-04-28 05:07] LABS: MCV 82.4 fL (80-100); RBC Red Blood Cell Count 4.13 M/uL (3.86-4.86)
[2022-04-28 05:25] LABS: Albumin 1.9 g/dL (3.4-5.0); Bilirubin Total 0.8 mg/dL (0.2-1.0); Magnesium 1.7 mg/dL (1.8-2.4); Potassium 3.4 mmol/L (3.5-5.1); Protein, Total 6.3 g/dL (6.4-8.2)
--- NOTE | 2022-04-28 05:57 | P.PN ---
Date of Service: 04/28/22 Subjective: +BM last night feeling better today pain less severe ROS: 10 point ROS as noted above, otherwise negative Physical exam GEN: Alert, oriented, NAD, obese HEENT: Normal conjunctiva, sclera anicteric CV: sinus tachycardia (100-110), no edema Pulm: Nonlabored respirations on room air ABD: Soft, mild tenderness in epigastrium, mild tenderness in LLQ Neuro: Normal speech, normal affect Problem List Acute pancreatitis secondary to hypertriglyceridemia Diabetes type [id number]-wytrlqufd with hyperglycemia Hyperlipidemia/hypertriglyceridemia Hypertension LLQ pain L ovarian cyst TG and lipase levels much improved today. pain improved CLD this morning, advance to full liquid for dinner if tolerating well dc insulin drip, start semglee 20u, sliding scale, adjust as needed A1c: [address], likely extension of inflammatory changes from tail of pancreas incidental ovarian cyst noted on CT - 2.5cm transvaginal U/S: 3.5 cm, normal blood flow to ovary, no other acute findings Pain medication, antiemetics as needed VTE: Lovenox Code: Full Dispo: Home, ~1-2 days possible downgrade from ICU tonight/tomorrow, pending repeat TG/glc levels off drip Time Spent Managing Pts Care (In Minutes): 35
[2022-04-28] MEDS ORDERED: POTASSIUM CL SA 10 MEQ TAB PO ONE ×2 (06:30→13:28)
[2022-04-28] MEDS ORDERED: MAGNESIUM SULFATE 1 gm IVPB 1 GM/100 ML BAG IV ONE (06:30)
[2022-04-28 06:57] LABS: LDL, Direct 143 mg/dL (100-129)
[2022-04-28] MEDS: DOCUSATE NA 100 MG CAP PO SCH ×2 (08:31→20:59)
[2022-04-28] MEDS: ENOXAPARIN 40 MG/0.4 ML SQ SCH (08:31)
[2022-04-28] MEDS: ONDANSETRON 4 MG/2 ML VIAL IV PRN ×2 (08:31→15:36)
[2022-04-28] MEDS: INSULIN -REGULAR HUMAN 100 UNIT in NA CHLORIDE 0.9% 100 ML IV SCH (10:31)
[2022-04-28] MEDS: HYDROCODONE/APAP 5/325 MG TAB PO PRN ×3 (11:09→22:16)
[2022-04-28] MEDS ORDERED: D5.45NS W/KCL 20MEQ 20 MEQ/1,000 ML BAG IV SCH (11:30)
[2022-04-28] MEDS: INSULIN -REGULAR HUMAN 50 UNIT/0.5 ML ML SQ SCH ×3 (11:30→20:59)
[2022-04-28] MEDS ORDERED: D10W 250 ML BAG IV PRN (11:42)
[2022-04-28] MEDS ORDERED: INSULIN GLARGINE 100 UNIT/ML SQ SCH (12:00)
[2022-04-28] MEDS ORDERED: POTASSIUM 25 MEQ EFFERV TAB PO ONE (16:00)
[2022-04-28] MEDS: PROMETHAZINE INJ 25 MG/ML AMP IV PRN (19:28)
[2022-04-28] MEDS: HYDROMORPHONE HCL 0.5 MG/0.5 ML INJ IV PRN (20:05)
[2022-04-28 20:07] LABS: LDL, Direct 187 mg/dL (100-129)
[2022-04-29] MEDS: HYDROCODONE/APAP 5/325 MG TAB PO PRN ×3 (04:17→20:27)
[2022-04-29 05:25] LABS: Hematocrit 33.1 % (36.0-45.0); MCV 82.2 fL (80-100); MPV 6.6 fL (7.6-11.3); RBC Red Blood Cell Count 4.02 M/uL (3.86-4.86)
[2022-04-29 05:43] LABS: Bilirubin Total 1.2 mg/dL (0.2-1.0); Potassium 3.9 mmol/L (3.5-5.1); Protein, Total 6.4 g/dL (6.4-8.2)
[2022-04-29] MEDS: INSULIN GLARGINE 100 UNIT/ML SQ SCH (08:18)
[2022-04-29] MEDS: INSULIN -REGULAR HUMAN 50 UNIT/0.5 ML ML SQ SCH ×4 (08:19→22:03)
[2022-04-29] MEDS: DOCUSATE NA 100 MG CAP PO SCH ×2 (08:21→20:28)
[2022-04-29] MEDS: ENOXAPARIN 40 MG/0.4 ML SQ SCH (08:21)
[2022-04-29] MEDS: HYDROMORPHONE HCL 0.5 MG/0.5 ML INJ IV PRN ×3 (08:21→23:29)
[2022-04-29] MEDS: ONDANSETRON 4 MG/2 ML VIAL IV PRN ×3 (08:38→23:35)
--- NOTE | 2022-04-29 12:39 | P.PN ---
Date of Service: 04/29/22 Subjective: a few small BMs +flatus intermittent nausea and pain; at times 5-7/10, but less frequent ROS: 10 point ROS as noted above, otherwise negative Physical exam GEN: Alert, oriented, NAD, obese HEENT: Normal conjunctiva, sclera anicteric CV: sinus tachycardia (100-110), no edema Pulm: Nonlabored respirations on room air ABD: Soft, mild tenderness in epigastrium, mild tenderness in LLQ Neuro: Normal speech, normal affect Problem List Acute pancreatitis secondary to hypertriglyceridemia Diabetes type [id number]-nltcuka-yxxxjxiok with hyperglycemia Hyperlipidemia/hypertriglyceridemia Hypertension LLQ pain L ovarian cyst TG and lipase levels much improved today pain slowly improving continue full liquids insulin drip dc'd 04/28, started semglee 20u daily, sliding scale A1c: 10 restart home fenofibrate LLQ pain reviewed CT, likely extension of inflammatory changes from tail of pancreas incidental ovarian cyst noted on CT - 2.5cm transvaginal U/S: 3.5 cm, normal blood flow to ovary, no other acute findings Pain medication, antiemetics as needed if worsens, will get CT abdomen pancreatic protocol VTE: Lovenox Code: Full Dispo: Home, ~1-2 days downgrade, stable to get out of ICU Time Spent Managing Pts Care (In Minutes): 25
[2022-04-29 19:31] LABS: LDL, Direct 201 mg/dL (100-129)
[2022-04-29] MEDS ORDERED: FENOFIBRATE 160 MG TAB PO SCH (21:00)
[2022-04-29] MEDS ORDERED: METOPROLOL XL 50 MG TAB PO SCH (21:00)
[2022-04-30 04:36] LABS: Hematocrit 32.8 % (36.0-45.0); MCV 81.9 fL (80-100); MPV 6.4 fL (7.6-11.3)
[2022-04-30] MEDS: PROMETHAZINE INJ 25 MG/ML AMP IV PRN (04:43)
[2022-04-30 04:52] LABS: Albumin 1.9 g/dL (3.4-5.0); Bilirubin Total 0.8 mg/dL (0.2-1.0); Magnesium 1.7 mg/dL (1.8-2.4); Potassium 3.5 mmol/L (3.5-5.1); Protein, Total 6.5 g/dL (6.4-8.2)
[2022-04-30] MEDS: HYDROMORPHONE HCL 0.5 MG/0.5 ML INJ IV PRN (06:34)
[2022-04-30] MEDS: ONDANSETRON 4 MG/2 ML VIAL IV PRN (06:34)
[2022-04-30] MEDS: INSULIN -REGULAR HUMAN 50 UNIT/0.5 ML ML SQ SCH ×2 (07:30→11:30)
[2022-04-30] MEDS ORDERED: POTASSIUM 25 MEQ EFFERV TAB PO ONE (09:00)
[2022-04-30] MEDS: INSULIN GLARGINE 100 UNIT/ML SQ SCH (09:00)
[2022-04-30] MEDS: ENOXAPARIN 40 MG/0.4 ML SQ SCH (09:54)
[2022-04-30] MEDS: DOCUSATE NA 100 MG CAP PO SCH (09:55)
[2022-04-30] MEDS: HYDROCODONE/APAP 5/325 MG TAB PO PRN (10:56)
[2022-04-30 11:16] VITALS: O2SAT 94
--- NOTE | 2022-04-30 11:53 | P.DS ---
Admission Date: 04/24/22 Discharge Date: 04/30/22 Disposition: ROUTINE DISCHARGE Discharge Condition: FAIR Reason for Admission: Acute pericarditis Brief History of Present Illness: 46-year-old female with history of diabetes mellitus type [id number]-[id number]-xobasgdzj, hypertension, hyperlipidemia, hypertriglyceridemia presented to the emergency department for severe epigastric pain that began today, pain radiates to her back. She was evaluated in the emergency department her labs were significant for sodium 130 chloride 97 glucose [address] abdomen pelvis performed without IV contrast revealed the body and tail the pancreas and the adjacent fatty tissue showed mild edema change when compared to 2018 suggesting pancreatitis. She reported her brother has chronic pancreatitis related to hypertriglyceridemia. Patient admitted for further management. Hospital Course: Diagnosis Acute pancreatitis secondary to hypertriglyceridemia Diabetes type [id number]-[id number] with hyperglycemia Hyperlipidemia/hypertriglyceridemia Hypertension LLQ pain L ovarian cyst Patient admitted to the ICU and started on insulin drip for hypertriglyceridemia. Her triglyceride level and lipase level gradually improved with treatment. This was accompanied by improvement in her abdominal pain. She was transition from insulin drip to subcutaneous insulin-Lantus and insulin sliding scale. Patient later tolerated full liquid diet. She was started on her home dose fenofibrate. She had LLQ pain. CT abdomen and pelvis reported incidental ovarian cyst noted on CT - 2.5cm. Transvaginal U/S: 3.5 cm ovarian cyst, normal blood flow to ovary, no other acute findings Patient symptoms have improved. She is ambulating, lipase level has normalized. Patient is deemed clinically stable for discharge. Patient stated her blood sugar was well controlled on her home oral hypoglycemic and metformin regimen. Her oral diabetes medications have been resumed on discharge. Her fenofibrate is also resumed on discharge. Vital Signs/Physical Exam: Temp Pulse Resp BP Pulse Ox 97.8 F 106 H 18 140/85 96 04/30/22 08:00 04/30/22 08:00 04/30/22 10:56 04/30/22 08:00 04/30/22 10:56 General: Alert, In no apparent distress, Oriented x3 HEENT: Mucous membr. moist/pink Neck: Supple, JVD not distended Respiratory: Clear to auscultation bilaterally, Normal air movement Cardiovascular: No edema, Regular rate/rhythm, Normal S1 S2 Gastrointestinal: Soft and benign, Non-distended, No tenderness Musculoskeletal: No swelling Integumentary: No rashes, No cyanosis Neurological: Normal strength at 5/5 x4 extr Laboratory Data at Discharge: WBC 13.70 K/uL (4.3-10.9) H 04/30/22 04:17 Hgb 10.7 g/dL (12.0-15.0) L 04/30/22 04:17 Hct 32.8 % (36.0-45.0) L 04/30/22 04:17 Plt Count 321 K/uL (152-406) 04/30/22 04:17 Sodium 133 mmol/L (136-145) L 04/30/22 04:17 Potassium 3.5 mmol/L (3.5-5.1) 04/30/22 04:17 BUN 6 mg/dL (7-18) L 04/30/22 04:17 Creatinine 0.38 mg/dL (0.55-1.3) L 04/30/22 04:17 Glucose 193 mg/dL (74-106) H 04/30/22 04:17 Magnesium 1.7 mg/dL (1.8-2.4) L 04/30/22 04:17 Total Bilirubin 0.8 mg/dL (0.2-1.0) 04/30/22 04:17 AST 12 U/L (15-37) L 04/30/22 04:17 ALT 42 U/L (12-78) 04/30/22 04:17 Alkaline Phosphatase 101 U/L (45-117) 04/30/22 04:17 Triglycerides Cancelled 04/30/22 06:00 Cholesterol 79 mg/dL (<200) 04/24/22 18:57 LDL Cholesterol Direct 201 mg/dL (100-129) H 04/29/22 18:45 HDL Cholesterol 14 mg/dL (40-60) L 04/24/22 18:57 Cholesterol/HDL Ratio 5.64 04/24/22 18:57 Lipase 198 U/L (73-393) 04/28/22 04:38 Home Medications: Glimepiride [Amaryl] 4 mg PO BID 04/25/22 Losartan/Hydrochlorothiazide [Losartan-Hctz 100-25 mg Tab] 1 each PO DAILY 04/25/22 Metformin HCl 1,000 mg PO BID 04/25/22 Metoprolol Succinate 50 mg PO BEDTIME 04/25/22 Bisacodyl [Dulcolax*] 10 mg [place] DAILY PRN #10 supp 04/30/22 Docusate [Colace Cap] 100 mg PO BID #60 cap 04/30/22 Fenofibrate 160 mg PO BEDTIME #30 tab 04/30/22 Hydrocodone 5/APAP 325 [[place] 5/325*] 1 tab PO Q6H PRN #15 tab 04/30/22 New Medications: Docusate [Colace Cap] 100 mg PO BID #60 cap Bisacodyl [Dulcolax*] 10 mg [place] DAILY PRN #10 supp PRN Reason: Constipation Fenofibrate 160 mg PO BEDTIME #30 tab Hydrocodone 5/APAP 325 [[place] 5/325*] 1 tab PO Q6H PRN #15 tab PRN Reason: Pain Scale 5-7 (Moderate) Followup: NONE,NONE [Primary Care Provider] - Time spent managing pt's care (in minutes): 33
[2022-04-30 12:33] VITALS: BP 159/92; TEMP 97.5
== END 2022-04-30 14:21 | disposition home or self-care (01) | DRG 439 ==
LOC: ER 14:02 → ERHOLD 19:16 → 3RD-ICU 04-25 16:46 → 4TH 04-29 13:45
PROVIDERS: ADMIT Hospitalist; ATTEND Internal Medicine
DX: K85.90 Acute pancreatitis without necrosis or infection, unspecified (principal); Z68.41 Body mass index [BMI] 40.0-44.9, adult; E66.9 Obesity, unspecified; I10 Essential (primary) hypertension; E78.5 Hyperlipidemia, unspecified; E78.1 Pure hyperglyceridemia; E11.65 Type 2 diabetes mellitus with hyperglycemia; N83.202 Unspecified ovarian cyst, left side; Z79.84 Long term (current) use of oral hypoglycemic drugs; Z79.899 Other long term (current) drug therapy; Z20.822 Contact with and (suspected) exposure to COVID-19
CPT/HCPCS: 36415; 71045; 74176; 76377; 76830; 80053; 80061; 81003; 81015; 81025; 82947; 83036; 83690; 83735; 84132; 84439; 84443; 84478; 84484; 85025; 85027; 87811; 96361; 96374; 96375; 99285; J1170; J1650; J1815; J2405; J2550; J3475; J7030; J7120

== ENCOUNTER 2024-04-27 17:06 | Emergency (ER) | payer BC ==
--- OUTSIDE RECORDS SUMMARY | 2024-04-27 17:10 | XMS REPORT | Continuity of Care Document ---
Author Name Unknown Address [address] [facility] [address] [place] [address] [facility] thconnect Address [address] [facility] [address] [place] [address] Care Team Providers Care Batch Room Technician Name Role Phone Leisa Castellanos MD Primary Care Physician + [phone] LEISA CASTELLANOS Attending Clinician Unavailable Leisa Castellanos MD Attending Clinician + Leisa Castellanos MD Attending Clinician + Doctor Unassigned, [place] Attending Clinician U angeli Pob, [facility] Main Attending Clinician UnavailOskar Valdivia Attending Clinician + OSKAR IQBAL Attending Clinician Unavailable CHARLES WALDRON Attending Clinician Unavailable CHARLES WALDRON Attending Clinician Unavailable DIO VASQUEZ Attending Clinician UnavailDIO Treviño Attending Clinician UnavailTYLER Rothman Attending Clinician Unavailable Sarah Low PT Attending Clinician UnavailTyler Rothman MD Attending Clinician [phone] DEMOND_[email or web address]_S Attending Clinician UnavailCrystal Tolbert PTA Attending Clinician Unavail able Dio Vasquez MD Attending Clinician [phone], [facility] Attending Clinician Unavailable Jori Estrada NP Attending Clinician [phone] JORI ESTRADA Attending Clinician Unavailab yana [email or web address] Admitting Clinician Unavaila ble Payers Payer Name Policy Type Policy Number Effective Date Expirati on Date Source [place] [id number] 2020 00:00:[place] [id number] 2020 00:00:00 Problems Condition Name Condition Details Condition Category Status Onset Date Resolution Date Last Treatment Date Treating Clinician Comments Source Genital warts Genital warts Disease Active 6-25 00:00: 00 [facility] Condyloma acuminatum of the anogenital region Condyloma Acuminatum of the Anogenital Region Problem Active 2- 00:00: 00 [facility] Polyp of corpus uteri Polyp of Corpus Uteri Problem Active 2022-06 0-03 00:00: 00 [facility] Diabetes mellitus Diabetes Mellitus Problem Active 02-17 00:00: 00 [facility] Hyperchole sterolemia Hyperchole sterolemia Problem Active 02-17 00:00: 00 [facility] Hypertensi ve disorder Hypertensi ve Disorder Problem Active 02-17 00:00: 00 [facility] Pancreatit is Pancreatit is Problem Active 02-17 00:00: 00 [facility] Female stress incontinen ce Female Stress Incontinen ce Problem Active 02-17 00:00: 00 [facility] Irregular periods Irregular Periods Problem Active 02-17 00:00: 00 [facility] Human papillomav irus deoxyribon ucleic acid detected, high risk on cervical specimen Human Papillomav irus Deoxyribon ucleic Acid Detected, High Risk on Cervical Specimen Problem Active 02-17 00:00: 00 [facility] Low grade squamous intraepith elial lesion on cervical Papanicola ou smear Low Grade Squamous Intraepith elial Lesion on Cervical Papanicola ou Smear Problem Active 02-17 00:00: 00 [facility] Pelvic and perineal pain Pelvic and Perineal Pain Problem Active 02-17 00:00: 00 [facility] Gastroesop hageal reflux disease without esophagiti s Gastroesop hageal reflux disease without esophagiti s Disease Active 2023-0 5-19 00:00: 00 [facility] Slow transit constipati on Slow transit constipati on Disease Active 2-16 00:00: 00 [facility] Idiopathic acute pancreatit is without infection or necrosis Idiopathic acute pancreatit is without infection or necrosis Disease Active 2021-06 00:00: 00 [facility] Hospital discharge follow-up Hospital discharge follow-up Disease Active 2021-06 00:00: 00 [facility] Obesity (BMI 30-39.9) Obesity (BMI 30-39.9) Disease Active 8- 00:00: 00 [facility] Pharyngiti s due to other organism Pharyngiti s due to other organism Disease Active 11-02 00:00: 00 [facility] Depression , major, recurrent, mild Depression , major, recurrent, mild Disease Active 11-02 00:00: 00 [facility] Anxiety, generalize d Anxiety, generalize d Disease Active 11-02 00:00: 00 [facility] Stress at work Stress at work Disease Active 11-02 00:00: 00 [facility] Mood changes Mood changes Disease Active 11-02 00:00: 00 [facility] Encounter to establish care with new doctor Encounter to establish care with new doctor Disease Active 09-28 00:00: 00 [facility] Essential hypertensi on Essential hypertensi on Disease Active 09-28 00:00: 00 [facility] Diabetes mellitus type 2 with complicati ons, uncontroll ed Diabetes mellitus type 2 with complicati ons, uncontroll ed Disease Active - 00:00: 00 [facility] Mixed hyperlipid emia Mixed hyperlipid emia Disease Active 4- 00:00: 00 [facility] Need for hepatitis C screening test Need for hepatitis C screening test Disease Active 4- 00:00: 00 [facility] PCOS (polycysti c ovarian syndrome) PCOS (polycysti c ovarian syndrome) Disease Active 4 00:00: 00 [facility] Encounter to establish care with new doctor Encounter to establish care with new doctor Disease Active 4 00:00: 00 [facility] Need for Tdap vaccinatio n Need for Tdap vaccinatio n Disease Active 4 00:00: 00 [facility] Familial hyperchole steremia Familial hyperchole steremia Disease Active 4 00:00: 00 [facility] Stress incontinen ce of urine Stress incontinen ce of urine Disease Active 4 00:00: 00 [facility] 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 Disease Active 4 00:00: 00 [facility] Type 2 diabetes mellitus with obesity Type 2 diabetes mellitus with obesity Disease Active 4 00:00: 00 [facility] Inflammati on of cervix Inflammati on of Cervix Problem Active 2020-06 0-06 00:00: 00 [facility] Cervical intraepith elial neoplasia grade 1 Cervical Intraepith elial Neoplasia Grade 1 Problem Active 8-12 00:00: 00 [facility] Screening mammograph y Screening Mammograph y Problem Active 6-21 00:00: 00 [facility] Hyperlipid emia Hyperlipid emia Problem Active 4-02 00:00: 00 [facility] Acute vaginitis Acute Vaginitis Problem Active 4-02 00:00: 00 [facility] Atypical squamous cells of undetermin ed significan ce on cervical Papanicola ou smear Atypical Squamous Cells of Undetermin ed Significan ce on Cervical Papanicola ou Smear Problem Active 4-02 00:00: 00 [facility] Hyperglyce colby due to type 2 diabetes mellitus Hyperglyce colby Due to Type 2 Diabetes Mellitus Problem Active 4-02 00:00: 00 [facility] Essential hypertensi on Essential Hypertensi on Problem Active 3-09 00:00: 00 [facility] Contracept ion care education Contracept ion Care Education Problem Active 3-09 00:00: 00 [facility] Venereal disease screening Venereal Disease Screening Problem Active 309 00:00: 00 [facility] Gynecologi andrey examinatio n abnormal Gynecologi andrey Examinatio n Abnormal Problem Active 12-03 00:00: 00 [facility] 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 Dermopathy Due to Type 2 Diabetes Mellitus Problem Active 12-03 00:00: 00 [facility] Herniation of rectum into vagina Herniation of Rectum into Vagina Problem Active 12-03 00:00: 00 [facility] Dysmenorrh ea Dysmenorrh ea Problem Active 12-03 00:00: 00 [facility] Genuine stress incontinen ce Genuine Stress Incontinen ce Problem Active 12-03 00:00: 00 [facility] Excessive and frequent menstruati on Excessive and Frequent Menstruati on Problem Active 12-03 00:00: 00 [facility] Abscess of skin and/or subcutaneo us tissue Abscess of Skin And/or Subcutaneo us Tissue Problem Active 12-03 00:00: 00 [facility] Allergies, Adverse Reactions, Alerts Allergy Name Allergy Type Status Severity Reaction(s) Onset Date Inactive Date Treating Clinician Comments Source NO KNOWN ALLERGIE S Drug Class Active [facility] Social History Social Habit Start Date Stop Date Quantity Comments Source Gender identity [facility] Alcoholic beverage intake 2024-01-21 00:00:00 2024-01-21 00:00:00 Lifetime non-drinker (finding) [facility] Tobacco use and exposure 2023-12-23 00:00:00 2023-12-23 00:00:00 Smokeless tobacco non-user [facility] History of Social function 2023-10-16 00:00:00 2023-10-16 00:00:00 [facility] Alcohol intake 2023-10-16 00:00:00 2023-10-16 00:00:00 Ex-drinker (finding) [facility] Exposure to SARS-CoV-2 (event) 2022-11-05 00:00:00 2022-11-15 10:50:00 Not sure [facility] Sex assigned at 1975 00:00:00 1975 00:00:00 [facility] Smoking Status Start Date Stop Date Source Never smoked tobacco [facility] Medications Ordered Medication Name Filled Medication Name Start Date Stop Date Current Medication? Ordering Clinician Indication Dosage Frequency Signature (SIG) Comments Components Source tirzepatide 7.5 mg/0.5 mL subcutaneou s injection 03-29 00:00: 00 Yes [id number] 7.5mg inject 7.5 mg under the skin weekly. Start 2.5mg qWeek x 4 Weeks, then increase to 5mg qWeek x 4 Weeks, then increase to 7.5mg qWeek x 4 Weeks, the increase to 10mg qWeek. [facility] tirzepatide 7.5 mg/0.5 mL subcutaneou s injection 03-24 00:00: 00 03-29 00:00 :00 No [id number] 7.5mg inject 7.5 mg under the skin weekly. Start 2.5mg qWeek x 4 Weeks, then increase to 5mg qWeek x 4 Weeks, then increase to 7.5mg qWeek x 4 Weeks, the increase to 10mg qWeek. [facility] tirzepatide (MOUNJARO) 5 mg/0.5 mL subcutaneou s injection 14 00:00: 00 03-24 00:00 :00 No [id number] 5mg inject 5 mg under the skin weekly. Start 2.5mg SC qWeek x 4 Weeks, then increase to 5 mg SC qWeek [facility] rosuvastati n 40 mg tablet 01-20 00:00: 00 Yes [id number] 40mg Take 1 tablet by mouth at bedtime. [facility] tirzepatide (MOUNJARO) 2.5 mg/0.5 mL subcutaneou s injection 01-20 00:00: 00 03-24 00:00 :00 No [id number] 2.5mg inject 2.5 mg under the skin weekly. Start 2.5mg subcutaneo usly once a week for 4 Weeks, then increase to 5 mg subcutaneo usly once a week. [facility] tirzepatide (MOUNJARO) 5 mg/0.5 mL subcutaneou s injection 01-20 00:00: 00 02-10 00:00 :00 No [id number] 5mg inject 5 mg under the skin weekly. Start 2.5mg SC qWeek x 4 Weeks, then increase to 5 mg SC qWeek [facility] amLODIPine 5 mg tablet 10-15 00:00: 00 Yes [id number] TAKE 1 TABLET IN THE MORNING [facility] famotidine 40 mg tablet 10-15 00:00: 00 Yes [id number] 40mg Take 1 tablet by mouth in the morning. [facility] Fenofibrate 160 mg tablet 10-15 00:00: 00 Yes [id number] TAKE 1 TABLET IN THE MORNING [facility] glimepiride 4 mg tablet 10-15 00:00: 00 Yes [id number] TAKE 1 TABLET IN THE MORNING AND 1 TABLET IN THE EVENING [facility] losartan-hy drochloroth iazide 100-25 mg per tablet 10-15 00:00: 00 Yes [id number] TAKE 1 TABLET IN THE MORNING [facility] metFORMIN 1,000 mg tablet 10-15 00:00: 00 Yes [id number] TAKE 1 TABLET IN THE MORNING AND 1 TABLET IN THE EVENING WITH MEALS [facility] metoprolol succinate XL 50 mg 24 hr tablet 10-15 00:00: 00 Yes [id number] TAKE 1 TABLET IN THE MORNING [facility] empaglifloz in (JARDIANCE) 10 mg tablet 10-15 00:00: 00 Yes [id number] 10mg Take 1 tablet by mouth in the morning. [facility] atorvastati n 40 mg tablet 10-15 00:00: 00 01-20 00:00 :00 No [id number] 40mg Take 1 tablet by mouth at bedtime. [facility] icosapent ethyL (VASCEPA) 1 gram capsule 10-15 00:00: 00 01-14 04:59 :00 No [id number] 2g Take 2 capsules by mouth in the morning and 2 capsules in the evening. Do all this for 90 days. [facility] atorvastati n 40 mg tablet atorvastati n 40 mg tablet 08-20 00:00: 00 No atorvastat in 40 mg tablet [facility] Contrave 8 mg-90 mg tablet,exte nded release TAKE 2 TABLETS BY MOUTH IN THE MORNING AND 2 TABLETS IN THE EVENING FOR 30 DAYS Contrave 8 mg-90 mg tablet,exte nded release TAKE 2 TABLETS BY MOUTH IN THE MORNING AND 2 TABLETS IN THE EVENING FOR 30 DAYS 08-20 00:00: 00 No Contrave 8 mg-90 mg tablet,ext ended release TAKE 2 TABLETS BY MOUTH IN THE MORNING AND 2 TABLETS IN THE EVENING FOR 30 DAYS [facility] famotidine 40 mg tablet as needed famotidine 40 mg tablet as needed 08-20 00:00: 00 No famotidine 40 mg tablet as needed [facility] fenofibrate 160 mg tablet fenofibrate 160 mg tablet 08-20 00:00: 00 No fenofibrat e 160 mg tablet [facility] metformin 1,000 mg tablet metformin 1,000 mg tablet 08-20 00:00: 00 No metformin 1,000 mg tablet [facility] metoprolol succinate ER 50 mg tablet,exte nded release 24 hr metoprolol succinate ER 50 mg tablet,exte nded release 24 hr 08-20 00:00: 00 No metoprolol succinate ER 50 mg tablet,ext ended release 24 hr [facility] metFORMIN 1,000 mg tablet 08-08 00:00: 00 10-15 00:00 :00 No [id number] TAKE 1 TABLET IN THE MORNING AND 1 TABLET IN THE EVENING WITH MEALS [facility] naltrexone- bupropion 8-90 mg per tablet 2- 00:00: 00 09-04 05:59 :00 No [id number] 2{tbl} Take 2 tablets by mouth in the morning and 2 tablets in the evening. Do all this for 30 days. [facility] ATORVASTATI N 40 mg tablet - 00:00: 00 10-15 00:00 :00 No [id number] 40mg TAKE 1 TABLET AT BEDTIME [facility] naltrexone- bupropion (CONTRAVE) 8-90 mg per tablet -18 00:00: 00 08-05 00:00 :00 No [id number] 2{tbl} Take 2 tablets by mouth in the morning and 2 tablets in the evening. Do all this for 30 days. [facility] FENOFIBRATE 160 mg tablet 07-16 00:00: 00 10-15 00:00 :00 No [id number] TAKE 1 TABLET IN THE MORNING [facility] METOPROLOL SUCCINATE XL 50 mg 24 hr tablet 07-16 00:00: 00 10-15 00:00 :00 No [id number] TAKE 1 TABLET IN THE MORNING [facility] GLIMEPIRIDE 4 mg tablet 1-05 00:00: 00 10-15 00:00 :00 No [id number] TAKE 1 TABLET IN THE MORNING AND 1 TABLET IN THE EVENING [facility] LOSARTAN-HY DROCHLOROTH IAZIDE 100-25 mg per tablet 2022-06 2-08 00:00: 00 10-15 00:00 :00 No [id number] TAKE 1 TABLET IN THE MORNING [facility] AMLODIPINE 5 mg tablet 2022-06-24 00:00: 00 10-15 00:00 :00 No [id number] TAKE 1 TABLET IN THE MORNING [facility] Blood-Gluco se Sensor (FREESTYLE FRANTZ 3 SENSOR) Laura 2022-06 0- 00:00: 00 Yes Use as directed [facility] famotidine 40 mg tablet 11-15 00:00: 00 10-15 00:00 :00 No [id number] 40mg Take 1 tablet by mouth in the morning. [facility] metFORMIN 1,000 mg tablet 11-15 00:00: 00 08-08 00:00 :00 No [id number] 1000mg Take 1 tablet by mouth in the morning and 1 tablet in the evening. Take with meals. [facility] atorvastati n 40 mg tablet 11-15 00:00: 00 07-18 00:00 :00 No [id number] 40mg Take 1 tablet by mouth at bedtime. [facility] Fenofibrate 160 mg tablet 11-15 00:00: 00 07-16 00:00 :00 No [id number] 160mg Take 1 tablet by mouth in the morning. [facility] metoprolol succinate XL 50 mg 24 hr tablet 11-15 00:00: 00 07-16 00:00 :00 No [id number] 50mg Take 1 tablet by mouth in the morning. [facility] glimepiride 4 mg tablet 11-15 00:00: 00 07-04 00:00 :00 No [id number] 4mg Take 1 tablet by mouth in the morning and 1 tablet in the evening. [facility] losartan-hy drochloroth iazide 100-25 mg per tablet 11-15 00:00: 00 06-06 00:00 :00 No [id number] 1{tbl} Take 1 tablet by mouth in the morning. [facility] amLODIPine 5 mg tablet 11-15 00:00: 00 05-23 00:00 :00 No [id number] 5mg Take 1 tablet by mouth in the morning. [facility] pioglitazon e 15 mg tablet 11-15 00:00: 00 03-17 00:00 :00 No [id number] 15mg Take 1 tablet by mouth in the morning. [facility] amLODIPine 5 mg tablet 09-23 00:00: 00 11-15 00:00 :00 No [id number] 5mg Take 1 tablet by mouth in the morning. [facility] glimepiride 4 mg tablet 2023-0 3-24 00:00: 00 11-15 00:00 :00 No [id number] 4mg Take 1 tablet by mouth in the morning and 1 tablet in the evening. [facility] docusate (COLACE) 100 mg capsule 2-16 00:00: 00 03-17 00:00 :00 No [id number] 100mg Take 1 capsule by mouth 2 (two) times daily as needed for Constipati on. [facility] lipase-prot ease-amylas e (CREON) 36,000-114, 000- 180,000 unit CpDR 2021-06 00:00: 00 03-17 00:00 :00 No [id number] Take 2 capsules by mouth with meals and 1 with each snack. [facility] metoprolol succinate XL 50 mg 24 hr tablet 2021-06 00:00: 00 11-15 00:00 :00 No [id number] 50mg Take 1 tablet by mouth in the morning. [facility] Fenofibrate 160 mg tablet 2021-06 00:00: 00 11-15 00:00 :00 No [id number] 160mg Take 1 tablet by mouth in the morning. [facility] metFORMIN 1,000 mg tablet 2021-06 00:00: 00 11-15 00:00 :00 No [id number] 1000mg Take 1 tablet by mouth in the morning and 1 tablet in the evening. Take with meals. [facility] losartan-hy drochloroth iazide 100-25 mg per tablet 2021-06 00:00: 00 11-15 00:00 :00 No [id number] 1{tbl} Take 1 tablet by mouth in the morning. [facility] atorvastati n 40 mg tablet 2021-06 00:00: 00 11-15 00:00 :00 No [id number] 40mg Take 1 tablet by mouth at bedtime. [facility] famotidine 40 mg tablet 2021-06 00:00: 00 11-15 00:00 :00 No [id number] 40mg Take 1 tablet by mouth in the morning. [facility] amLODIPine 5 mg tablet 2021-06 00:00: 00 09-23 00:00 :00 No [id number] 5mg Take 1 tablet by mouth in the morning. [facility] glimepiride 4 mg tablet 2021-06 00:00: 00 09-20 00:00 :00 No [id number] 4mg Take 1 tablet by mouth daily with breakfast. [facility] lipase-prot ease-amylas e (CREON) 3,000-9,500 - 15,000 unit capsule 2021-06 00:00: 00 05-09 00:00 :00 No [id number] 3000U Take 1 capsule by mouth in the morning and 1 capsule at noon and 1 capsule in the evening. Take with meals. [facility] semaglutide (OZEMPIC) 0.25 mg or 0.5 mg(2 mg/1.5 mL) PnIj 2021-06 00:00: 05-09 00:00 :00 No [id number] .5mg inject 0.5 mg under the skin weekly. Direction: Inject 0.25mg qWeek x 4 Weeks; then Inject 0.5mg qWeek x 4Weeks; then inject 1mg qWeek. [facility] Fenofibrate 160 mg tablet 03-28 00:00: 05-09 00:00 :00 No [id number] 160mg Take 1 tablet by mouth in the morning. [facility] metFORMIN 1,000 mg tablet 9 00:00: 00 05-09 00:00 :00 No [id number] 1000mg Take 1 tablet by mouth in the morning and 1 tablet in the evening. Take with meals. [facility] semaglutide (OZEMPIC) 0.25 mg or 0.5 mg(2 mg/1.5 mL) PnIj 8-09 00:00: 00 05-01 00:00 :00 No [id number] .5mg inject 0.5 mg under the skin weekly. Direction: Inject 0.25mg qWeek x 4 Weeks; then Inject 0.5mg qWeek x 4Weeks; then inject 1mg qWeek. [facility] atorvastati n 40 mg tablet 12-06 00:00: 00 05-09 00:00 :00 No [id number] 40mg Take 1 tablet by mouth at bedtime. [facility] docusate (COLACE) 100 mg capsule 11-28 00:00: 00 08-15 00:00 :00 No [id number] 100mg Take 1 capsule by mouth 2 (two) times daily as needed for Constipati on. [facility] glimepiride 4 mg tablet 11-02 00:00: 00 05-09 00:00 :00 No [id number] 4mg Take 1 tablet by mouth daily with breakfast. [facility] metoprolol succinate XL 50 mg 24 hr tablet 11-02 00:00: 05-09 00:00 :00 No [id number] 50mg Take 1 tablet by mouth daily. [facility] losartan-hy drochloroth iazide 100-25 mg per tablet 11-02 00:00: 00 05-09 00:00 :00 No [id number] 1{tbl} Take 1 tablet by mouth daily. [facility] amLODIPine 5 mg tablet 11-02 00:00: 00 05-09 00:00 :00 No [id number] 5mg Take 1 tablet by mouth daily. [facility] semaglutide (OZEMPIC) 1 mg/dose (2 mg/1.5 mL) PnIj 11-02 00:00: 00 05-09 00:00 :00 No [id number] 1mg inject 1 mg under the skin weekly. [facility] metFORMIN 1,000 mg tablet 11-02 00:00: 00 03-28 00:00 :00 No [id number] 1000mg Take 1 tablet by mouth 2 (two) times daily with meals. [facility] Fenofibrate 160 mg tablet 5-06 00:00: 00 03-28 00:00 :00 No [id number] 160mg Take 1 tablet by mouth daily. [facility] fluconazole (DIFLUCAN) 200 mg tablet 4-12 00:00: 00 05-09 00:00 :00 No [id number] 200mg Take 1 tablet by mouth daily. [facility] finasteride 1 mg tablet finasteride 1 mg tablet No finasterid e 1 mg tablet [facility] imiquimod 5 % topical cream packet Imiquimod 5% cream, apply at night over the local areas, keep overnight and wash up the next morning. Repeat application every 3 days. imiquimod 5 % topical cream packet Imiquimod 5% cream, apply at night over the local areas, keep overnight and wash up the next morning. Repeat application every 3 days. No imiquimod 5 % topical cream packet Imiquimod 5% cream, apply at night over the local areas, keep overnight and wash up the next morning. Repeat applicatio n every 3 days. [facility] Jardiance 10 mg tablet Jardiance 10 mg tablet No Jardiance 10 mg tablet [facility] Immunizations Ordered Immunization Name Filled Immunization Name Date Status Comments Source Zoster Vaccine Recombinant 2023-10-16 00:00:00 Completed [facility] Zoster Vaccine Recombinant 2023-10-16 00:00:00 Completed [facility] SARS-COV-2 COVID-19 CALVIN-SUCROSE VACCINE 12 YRS+, BIVALENT 0.3ML, IM, ([employer] TOP [employer]ER) 2022-08-15 00:00:00 Completed [facility] SARS-COV-2 COVID-19 CALVIN-SUCROSE VACCINE 12 YRS+, BIVALENT 0.3ML, IM, (P[employer]ER [employer] TOP) 2022-08-15 00:00:00 Completed [facility] SARS-COV-2 COVID-19 CALVIN-SUCROSE VACCINE 12 YRS+, BIVALENT 0.3ML, IM, ([employer] TOP) 2022-08-15 00:00:00 Completed [facility] SARS-COV-2 COVID-19 CALVIN-SUCROSE VACCINE 12 YRS+, BIVALENT 0.3ML, IM, ([facility]) 2022-08-15 00:00:00 Completed [facility] SARS-COV-2 COVID-19 CALVIN-SUCROSE VACCINE 12 YRS+, BIVALENT 0.3ML, IM, ([facility]) 2022-08-15 00:00:00 Completed [facility] SARS-COV-2 COVID-19 CALVIN-SUCROSE VACCINE 12 YRS+, BIVALENT 0.3ML, IM, ([facility]) 2022-08-15 00:00:00 Completed [facility] SARS-COV-2 COVID-19 CALVIN-SUCROSE VACCINE 12 YRS+, BIVALENT 0.3ML, IM, ([facility]) 2022-08-15 00:00:00 Completed [facility] SARS-COV-2 COVID-19 CALVIN-SUCROSE VACCINE 12 YRS+, BIVALENT 0.3ML, IM, ([facility]) 2022-08-15 00:00:00 Completed [facility] SARS-COV-2 COVID-19 CALVIN-SUCROSE VACCINE 12 YRS+, BIVALENT 0.3ML, IM, ([facility]) 2022-08-15 00:00:00 Completed [facility] SARS-COV-2 COVID-19 CALVIN-SUCROSE VACCINE 12 YRS+, BIVALENT 0.3ML, IM, ([employer] [facility]) 2022-08-15 00:00:00 Completed [facility] SARS-COV-2 COVID-19 CALVIN-SUCROSE VACCINE 12 YRS+, BIVALENT 0.3ML, IM, ([facility] 2022-08-15 00:00:00 Completed [facility] SARS-COV-2 COVID-19 CALVIN-SUCROSE VACCINE 12 YRS+, BIVALENT 0.3ML, IM, ([facility]) 2022-08-15 00:00:00 Completed [facility] SARS-COV-2 COVID-19 CALVIN-SUCROSE VACCINE 12 YRS+, BIVALENT 0.3ML, IM, ([facility]) 2022-08-15 00:00:00 Completed [facility] SARS-COV-2 COVID-19 CALVIN-SUCROSE VACCINE 12 YRS+, BIVALENT 0.3ML, IM, ([facility]) 2022-08-15 00:00:00 Completed [facility] SARS-COV-2 COVID-19 CALVIN-SUCROSE VACCINE 12 YRS+, BIVALENT 0.3ML, IM, ([facility]) 2022-08-15 00:00:00 Completed [facility] SARS-COV-2 COVID-19 CALVIN-SUCROSE VACCINE 12 YRS+, BIVALENT 0.3ML, IM, ([facility]) 2022-08-15 00:00:00 Completed [facility] SARS-COV-2 COVID-19 CALVIN-SUCROSE VACCINE 12 YRS+, BIVALENT 0.3ML, IM, ([facility]) 2022-08-15 00:00:00 Completed [facility] SARS-COV-2 COVID-19 CALVIN-SUCROSE VACCINE 12 YRS+, BIVALENT 0.3ML, IM, ([facility]) 2022-08-15 00:00:00 Completed [facility] SARS-COV-2 COVID-19 CALVIN-SUCROSE VACCINE 12 YRS+, BIVALENT 0.3ML, IM, ([facility]) 2022-08-15 00:00:00 Completed [facility] SARS-COV-2 COVID-19 CALVIN-SUCROSE VACCINE 12 YRS+, BIVALENT 0.3ML, IM, ([facility] [place] [facility]) 2022-08-15 00:00:00 Completed [facility] SARS-COV-2 COVID-19 CALVIN-SUCROSE VACCINE 12 YRS+, BIVALENT 0.3ML, IM, ([facility]) 2022-08-15 00:00:00 Completed [facility] SARS-COV-2 COVID-19 CALVIN-SUCROSE VACCINE 12 YRS+, BIVALENT 0.3ML, IM, ([facility]) 2022-08-15 00:00:00 Completed [facility] SARS-COV-2 COVID-19 CALVIN-SUCROSE VACCINE 12 YRS+, BIVALENT 0.3ML, IM, ([facility]) 2022-08-15 00:00:00 Completed [facility] SARS-COV-2 COVID-19 PFIZER VACCINE 2020-10-09 00:00:00 Completed [facility] SARS-COV-2 COVID-19 PFIZER VACCINE 2020-10-09 00:00:00 Completed [facility] SARS-COV-2 COVID-19 PFIZER VACCINE 2020-10-09 00:00:00 Completed [facility] SARS-COV-2 COVID-19 PFIZER VACCINE 2020-10-09 00:00:00 Completed [facility] SARS-COV-2 COVID-19 PFIZER VACCINE 2020-10-09 00:00:00 Completed [facility] SARS-COV-2 COVID-19 PFIZER VACCINE 2020-10-09 00:00:00 Completed [facility] SARS-COV-2 COVID-19 PFIZER VACCINE 2020-10-09 00:00:00 Completed [facility] SARS-COV-2 COVID-19 PFIZER VACCINE 2020-10-09 00:00:00 Completed [facility] SARS-COV-2 COVID-19 PFIZER VACCINE 2020-10-09 00:00:00 Completed [facility] SARS-COV-2 COVID-19 PFIZER VACCINE 2020-10-09 00:00:00 Completed [facility] SARS-COV-2 COVID-19 PFIZER VACCINE 2020-10-09 00:00:00 Completed [facility] SARS-COV-2 COVID-19 PFIZER VACCINE 2020-10-09 00:00:00 Completed [facility] TDAP 2017-03-28 00:00:00 Completed [facility] TDAP 2017-03-28 00:00:00 Completed [facility] TDAP 2017-03-28 00:00:00 Completed [facility] TDAP 2017-03-28 00:00:00 Completed [facility] TDAP 2017-03-28 00:00:00 Completed [facility] TDAP 2017-03-28 00:00:00 Completed [facility] TDAP 2017-03-28 00:00:00 Completed [facility] TDAP 2017-03-28 00:00:00 Completed [facility] TDAP 2017-03-28 00:00:00 Completed [facility] TDAP 2017-03-28 00:00:00 Completed [facility] TDAP 2017-03-28 00:00:00 Completed [facility] TDAP 2017-03-28 00:00:00 Completed [facility] TDAP 2017-03-28 00:00:00 Completed [facility] TDAP 2017-03-28 00:00:00 Completed TD[facility] 2017-03-28 00:00:00 Completed SARS-COV-2 COVID-19 CALVIN-SUCROSE VACCINE 12 YRS+, BIVALENT 0.3ML, IM, ([facility]) Unknown Completed [facility] TDAP Unknown Completed [facility] SARS-COV-2 COVID-19 CALVIN-SUCROSE VACCINE 12 YRS+, BIVALENT 0.3ML, IM, ([facility] [place] [facility]) Unknown Completed [facility] TDAP Unknown Completed [facility] SARS-COV-2 COVID-19 CALVIN-SUCROSE VACCINE 12 YRS+, BIVALENT 0.3ML, IM, ([facility] [place] [facility]) Unknown Completed [facility] TDAP Unknown Completed [facility] TDAP Unknown Completed [facility] TDAP Unknown Completed [facility] SARS-COV-2 COVID-19 CALVIN-SUCROSE VACCINE 12 YRS+, BIVALENT 0.3ML, IM, ([facility]) Unknown Completed [facility] TDAP Unknown Completed [facility] SARS-COV-2 COVID-19 CALVIN-SUCROSE VACCINE 12 YRS+, BIVALENT 0.3ML, IM, ([facility]) Unknown Completed [facility] TDAP Unknown Completed [facility] SARS-COV-2 COVID-19 CALVIN-SUCROSE VACCINE 12 YRS+, BIVALENT 0.3ML, IM, ([facility]) Unknown Completed [facility] TDAP Unknown Completed [facility] SARS-COV-2 COVID-19 CALVIN-SUCROSE VACCINE 12 YRS+, BIVALENT 0.3ML, IM, ([facility]) Unknown Completed [facility] TDAP Unknown Completed [facility] SARS-COV-2 COVID-19 CALVIN-SUCROSE VACCINE 12 YRS+, BIVALENT 0.3ML, IM, ([facility] [facility]) Unknown Completed [facility] TDAP Unknown Completed [facility] SARS-COV-2 COVID-19 CALVIN-SUCROSE VACCINE 12 YRS+, BIVALENT 0.3ML, IM, ([facility]) Unknown Completed [facility] TDAP Unknown Completed [facility] SARS-COV-2 COVID-19 CALVIN-SUCROSE VACCINE 12 YRS+, BIVALENT 0.3ML, IM, ([facility] [place] [facility]) Unknown Completed [facility] TDAP Unknown Completed [facility] SARS-COV-2 COVID-19 CALVIN-SUCROSE VACCINE 12 YRS+, BIVALENT 0.3ML, IM, ([facility] [place] [facility]) Unknown Completed [facility] TDAP Unknown Completed [facility] SARS-COV-2 COVID-19 CALVIN-SUCROSE VACCINE 12 YRS+, BIVALENT 0.3ML, IM, ([facility] [place] [facility]) Unknown Completed [facility] TDAP Unknown Completed [facility] SARS-COV-2 COVID-19 CALVIN-SUCROSE VACCINE 12 YRS+, BIVALENT 0.3ML, IM, ([facility] [place] [facility]) Unknown Completed [facility] TDAP Unknown Completed [facility] SARS-COV-2 COVID-19 CALVIN-SUCROSE VACCINE 12 YRS+, BIVALENT 0.3ML, IM, ([facility]) Unknown Completed [facility] TDAP Unknown Completed [facility] SARS-COV-2 COVID-19 CALVIN-SUCROSE VACCINE 12 YRS+, BIVALENT 0.3ML, IM, ([facility] [place] [facility]) Unknown Completed [facility] TDAP Unknown Completed [facility] SARS-COV-2 COVID-19 CALVIN-SUCROSE VACCINE 12 YRS+, BIVALENT 0.3ML, IM, ([facility]) Unknown Completed [facility] TDAP Unknown Completed [facility] SARS-COV-2 COVID-19 CALVIN-SUCROSE VACCINE 12 YRS+, BIVALENT 0.3ML, IM, ([facility]) Unknown Completed [facility] TDAP Unknown Completed [facility] SARS-COV-2 COVID-19 CALVIN-SUCROSE VACCINE 12 YRS+, BIVALENT 0.3ML, IM, ([facility] [facility]) Unknown Completed [facility] TDAP Unknown Completed [facility] SARS-COV-2 COVID-19 CALVIN-SUCROSE VACCINE 12 YRS+, BIVALENT 0.3ML, IM, ([facility] [facility]) Unknown Completed [facility] TDAP Unknown Completed [facility] SARS-COV-2 COVID-19 CALVIN-SUCROSE VACCINE 12 YRS+, BIVALENT 0.3ML, IM, ([facility] [place] [facility]) Unknown Completed [facility] TDAP Unknown Completed [facility] SARS-COV-2 COVID-19 CALVIN-SUCROSE VACCINE 12 YRS+, BIVALENT 0.3ML, IM, ([facility] [facility]) Unknown Completed [facility] TDAP Unknown Completed [facility] SARS-COV-2 COVID-19 CALVIN-SUCROSE VACCINE 12 YRS+, BIVALENT 0.3ML, IM, ([facility] [place] [facility]) Unknown Completed [facility] TDAP Unknown Completed [facility] SARS-COV-2 COVID-19 CALVIN-SUCROSE VACCINE 12 YRS+, BIVALENT 0.3ML, IM, ([facility] [place] [facility]) Unknown Completed [facility] TDAP Unknown Completed [facility] SARS-COV-2 COVID-19 CALVIN-SUCROSE VACCINE 12 YRS+, BIVALENT 0.3ML, IM, ([facility] [place] [facility]) Unknown Completed [facility] TDAP Unknown Completed [facility] SARS-COV-2 COVID-19 CALVIN-SUCROSE VACCINE 12 YRS+, BIVALENT 0.3ML, IM, ([facility] [place] [facility]) Unknown Completed [facility] TDAP Unknown Completed [facility] Zoster Vaccine Recombinant Unknown Completed [facility] SARS-COV-2 COVID-19 CALVIN-SUCROSE VACCINE 12 YRS+, BIVALENT 0.3ML, IM, ([facility] [place] [facility]) Unknown Completed [facility] TDAP Unknown Completed [facility] Zoster Vaccine Recombinant Unknown Completed [facility] SARS-COV-2 COVID-19 CALVIN-SUCROSE VACCINE 12 YRS+, BIVALENT 0.3ML, IM, ([facility] [place] [facility]) Unknown Completed [facility] TDAP Unknown Completed [facility] Zoster Vaccine Recombinant Unknown Completed [facility] SARS-COV-2 COVID-19 CALVIN-SUCROSE VACCINE 12 YRS+, BIVALENT 0.3ML, IM, ([facility] [place] [facility]) Unknown Completed [facility] TDAP Unknown Completed [facility] Zoster Vaccine Recombinant Unknown Completed [facility] SARS-COV-2 COVID-19 CALVIN-SUCROSE VACCINE 12 YRS+, BIVALENT 0.3ML, IM, (P[facility] [place] TOP) Unknown Completed [facility] TDAP Unknown Completed [facility] Zoster Vaccine Recombinant Unknown Completed [facility] SARS-COV-2 COVID-19 CALVIN-SUCROSE VACCINE 12 YRS+, BIVALENT 0.3ML, IM, ([facility] [facility]) Unknown Completed [facility] TDAP Unknown Completed [facility] Zoster Vaccine Recombinant Unknown Completed [facility] SARS-COV-2 COVID-19 CALVIN-SUCROSE VACCINE 12 YRS+, BIVALENT 0.3ML, IM, ([facility]) Unknown Completed [facility] TDAP Unknown Completed [facility] Zoster Vaccine Recombinant Unknown Completed [facility] SARS-COV-2 COVID-19 CALVIN-SUCROSE VACCINE 12 YRS+, BIVALENT 0.3ML, IM, ([facility] [place] [facility]) Unknown Completed [facility] TDAP Unknown Completed [facility] Zoster Vaccine Recombinant Unknown Completed [facility] SARS-COV-2 COVID-19 CALVIN-SUCROSE VACCINE 12 YRS+, BIVALENT 0.3ML, IM, ([facility] [place] [facility]) Unknown Completed [facility] TDAP Unknown Completed [facility] Zoster Vaccine Recombinant Unknown Completed [facility] SARS-COV-2 COVID-19 CALVIN-SUCROSE VACCINE 12 YRS+, BIVALENT 0.3ML, IM, ([facility] [facility]) Unknown Completed [facility] TDAP Unknown Completed [facility] Zoster Vaccine Recombinant Unknown Completed [facility] SARS-COV-2 COVID-19 CALVIN-SUCROSE VACCINE 12 YRS+, BIVALENT 0.3ML, IM, ([facility] [place] [facility]) Unknown Completed [facility] TDAP Unknown Completed [facility] Zoster Vaccine Recombinant Unknown Completed [facility] SARS-COV-2 COVID-19 CALVIN-SUCROSE VACCINE 12 YRS+, BIVALENT 0.3ML, IM, ([facility] [facility]) Unknown Completed [facility] TDAP Unknown Completed [facility] Zoster Vaccine Recombinant Unknown Completed [facility] Vital Signs Vital Name Observation Time Observation Value Comments S ource Systolic blood pressure 2024-01-21 15:52:00 121 mm[Hg] [facility] Diastolic blood pressure 2024-01-21 15:52:00 81 mm[Hg] [facility] Heart rate 2024-01-21 15:52:00 79 /min [facility] Body temperature 2024-01-21 15:52:00 35.72 Nakia [facility] Respiratory rate 2024-01-21 15:52:00 18 /min [facility] Body height 2024-01-21 15:52:00 160 cm [facility] Body weight 2024-01-21 15:52:00 93.26 kg [facility] BMI 2024-01-21 15:52:00 36.42 kg/m2 [facility] Oxygen saturation in Arterial blood by Pulse oximetry 2024-01-21 15:52:00 98 /min [facility] Systolic blood pressure 2023-12-23 18:57:00 135 mm[Hg] [facility] Diastolic blood pressure 2023-12-23 18:57:00 90 mm[Hg] [facility] Heart rate 2023-12-23 18:57:00 96 /min [facility] Body temperature 2023-12-23 18:57:00 36.44 Nakia [facility] Body height 2023-12-23 18:57:00 160 cm [facility] Body weight 2023-12-23 18:57:00 95.165 kg [facility] BMI 2023-12-23 18:57:00 37.16 kg/m2 [facility] BP Diastolic 2023-11-12 00:00:00 90 mm[Hg] [facility] BP Systolic 2023-11-12 00:00:00 128 mm[Hg] [facility] BMI (Body Mass Index) 2023-11-12 00:00:00 37.1 kg/m2 [facility] Height 2023-11-12 00:00:00 63 [in_i] [facility] Body Weight 2023-11-12 00:00:00 209.6 [lb_av] [facility] Systolic blood pressure 2023-10-16 15:21:00 122 mm[Hg] [facility] Diastolic blood pressure 2023-10-16 15:21:00 82 mm[Hg] [facility] Heart rate 2023-10-16 15:21:00 89 /min [facility] Body temperature 2023-10-16 15:21:00 36.56 Nakia [facility] Body height 2023-10-16 15:21:00 160 cm [facility] Body weight 2023-10-16 15:21:00 92.987 kg [facility] BMI 2023-10-16 15:21:00 36.31 kg/m2 [facility] Oxygen saturation in Arterial blood by Pulse oximetry 2023-10-16 15:21:00 99 /min [facility] Height 2023-10-03 00:00:00 63 [in_i] [facility] BP Systolic 2023-09-19 00:00:00 133 mm[Hg] [facility] Height 2023-09-19 00:00:00 63 [in_i] [facility] Body Weight 2023-09-19 00:00:00 209.4 [lb_av] [facility] BP Diastolic 2023-09-19 00:00:00 84 mm[Hg] [facility] BMI (Body Mass Index) 2023-09-19 00:00:00 37.1 kg/m2 [facility] Systolic blood pressure 2023-07-17 16:17:00 122 mm[Hg] [facility] Diastolic blood pressure 2023-07-17 16:17:00 83 mm[Hg] [facility] Heart rate 2023-07-17 16:17:00 83 /min [facility] Respiratory rate 2023-07-17 16:17:00 18 /min [facility] Body height 2023-07-17 16:17:00 160 cm [facility] Body weight 2023-07-17 16:17:00 92.987 kg [facility] BMI 2023-07-17 16:17:00 36.31 kg/m2 [facility] Oxygen saturation in Arterial blood by Pulse oximetry 2023-07-17 16:17:00 98 /min [facility] Systolic blood pressure 2023-03-17 15:19:00 129 mm[Hg] [facility] Diastolic blood pressure 2023-03-17 15:19:00 88 mm[Hg] [facility] Heart rate 2023-03-17 15:19:00 86 /min [facility] Body temperature 2023-03-17 15:19:00 36.5 Nakia [facility] Body height 2023-03-17 15:19:00 160 cm [facility] Body weight 2023-03-17 15:19:00 95.482 kg [facility] BMI 2023-03-17 15:19:00 37.29 kg/m2 [facility] Oxygen saturation in Arterial blood by Pulse oximetry 2023-03-17 15:19:00 99 /min [facility] Systolic blood pressure 2022-11-15 16:46:00 131 mm[Hg] [facility] Diastolic blood pressure 2022-11-15 16:46:00 91 mm[Hg] [facility] Heart rate 2022-11-15 16:40:00 88 /min [facility] Respiratory rate 2022-11-15 16:40:00 18 /min [facility] Body height 2022-11-15 16:40:00 160 [facility] 2022-11-15 16:40:00 93.94 kg [facility] BMI 2022-11-15 16:40:00 36.69 kg/m2 [facility] Oxygen saturation in Arterial blood by Pulse oximetry 2022-11-15 16:40:00 98 /min [facility] Systolic blood pressure 2022-08-15 22:18:00 149 mm[Hg] [facility] Diastolic blood pressure 2022-08-15 22:18:00 101 mm[Hg] [facility] Heart rate 2022-08-15 22:17:00 107 /min [facility] Respiratory rate 2022-08-15 22:17:00 18 /min [facility] Body weight 2022-08-15 22:17:00 93.441 kg [facility] BMI 2022-08-15 22:17:00 36.49 kg/m2 [facility] Oxygen saturation in Arterial blood by Pulse oximetry 2022-08-15 22:17:00 98 /min [facility] Systolic blood pressure 2022-05-09 19:28:00 122 mm[Hg] [facility] Diastolic blood pressure 2022-05-09 19:28:00 84 mm[Hg] [facility] Heart rate 2022-05-09 19:28:00 105 /min [facility] Body temperature 2022-05-09 19:28:00 36.61 Nakia [facility] Respiratory rate 2022-05-09 19:28:00 18 /min [facility] Body weight 2022-05-09 19:28:00 92.352 kg [facility] BMI 2022-05-09 19:28:00 36.07 kg/m2 [facility] Oxygen saturation in Arterial blood by Pulse oximetry 2022-05-09 19:28:00 97 /min [facility] Systolic blood pressure 2022-05-01 20:35:00 139 mm[Hg] [facility] Diastolic blood pressure 2022-05-01 20:35:00 87 mm[Hg] [facility] Heart rate 2022-05-01 20:35:00 104 /min [facility] Respiratory rate 2022-05-01 20:34:00 18 /min [facility] Body weight 2022-05-01 20:34:00 95.255 kg [facility] BMI 2022-05-01 20:34:00 37.20 kg/m2 [facility] Oxygen saturation in Arterial blood by Pulse oximetry 2022-05-01 20:34:00 94 /min [facility] Procedures Procedure Date / Time Performed Performing Clinician Source XR KUB 2024-01-21 17:44:13 Leisa Castellanos [facility] VARICELLA-ZOSTER VACCINE, (SHINGRIX) 50 MCG/0.5 ML, IM 2023-10-16 16:06:25 Oskar Iqbal [facility] CBC WITH DIFF 2023-07-09 19:25:00 Oskar Iqbal [facility] EXTERNAL PROVIDER RECORDS 2023-04-16 05:01:00 Do ctor Unassigned, [place] [facility] EXTERNAL PROVIDER RECORDS 2023-03-20 05:01:00 Do ctor Unassigned, [place] [facility] EXTERNAL PROVIDER RECORDS 2023-03-18 05:01:00 Do ctor Unassigned, [place] [facility] XR LUMBAR SPINE 5 VW 2023-03-17 16:53:03 Demetra Iqbal [facility] EXTERNAL PROVIDER RECORDS 2023-03-13 05:01:00 Do ctor Unassigned, [place] [facility] GLYCOSYLATED HEMOGLOBIN (A1C) 2023-03-10 17:22:00 Leisa Castellanos [facility] DISABILITY/FMLA 2023-01-07 05:01:00 Doctor Unass igned, [place] [facility] DISABILITY/FMLA 2022-12-24 05:01:00 Doctor Unass igned, [place] [facility] EXTERNAL PROVIDER RECORDS 2022-12-02 05:01:00 Do ctor Unassigned, [place] [facility] CONSENT/REFUSAL FOR DIAGNOSIS AND TREATMENT 2022-11-07 15:56:32 Doctor Unassigned, [place] [facility] ASSIGNMENT OF BENEFITS 2022-11-07 15:56:20 Docto r Unassigned, [place] [facility] SARS-COV-2 COVID-19 CALVIN-SUCROSE VACCINE 12 YRS+, BIVALENT 0.3ML, IM, ([facility] BOOSTER) 2022-08-15 23:19:53 Leisa Castellanos [facility] AUTHORIZATION FOR RELEASE OF PHI 2022-06-06 06:01:00 Doctor Unassigned, [place] [facility] MEDICATION CORRESPONDENCE 2022-02-19 05:01:00 Do ctor Unassigned, [place] [facility] Encounters Start Date/Time End Date/Time Encounter Type Admission Type Attending [facility] Facility Care Department Encounter ID Source 2024-04-22 09:00:00 2024-04-22 09:00:00 Outpatient R LEISA CASTELLANOS [facility] [id number] [facility] 2024-04-21 00:00:00 2024-04-21 12:28:54 Patient Secure Msg Leisa Castellanos [facility] [id number] [facility] 2024-03-29 00:00:00 2024-03-29 15:33:33 Patient Secure Msg Leisa Castellanos [facility] [id number] [facility] 2024-03-17 00:00:00 2024-03-25 07:59:57 Patient Secure Msg Leisa Castellanos [facility] PROFESSIO NAL BUILDING 1.2.840.114 350.1.13.10 4.2.7.2.686 [id number] 044 [id number] [facility] 2024-02-11 00:00:00 2024-02-11 09:57:25 Patient Secure Msg Leisa Castellanos [facility] 1.2.840.114 350.1.13.10 4.2.7.2.686 [id number] 044 [id number] [facility] 2024-01-26 00:00:00 2024-01-26 10:14:10 Patient Secure M[facility] 1.2.840.114 350.1.13.10 4.2.7.2.686 [id number] 044 [id number] [facility] 2024-01-23 00:00:00 2024-01-26 08:12:36 Patient Secure Msg Leisa Castellanos [facility] BUILDING 1.2.840.114 350.1.13.10 4.2.7.2.686 [id number] 044 [id number] [facility] 2023-12-18 00:00:00 2024-01-24 18:26:35 Patient Secure Msg Doctor Unassigned, [place] [facility] 1.2.840.114 350.1.13.10 4.2.7.2.686 [id number] 037 [id number] [facility] 2024-01-21 12:29:13 2024-01-21 23:59:00 Hospital Encounter Leisa Castellanos AT [facility] 1.2.840.114 350.1.13.10 4.2.7.2.686 [id number] [facility] 2024-01-21 10:40:00 2024-01-21 11:59:08 Outpatient R LEISA CASTELLANOS [facility] [id number] [facility] 2024-01-21 10:40:00 2024-01-21 11:59:08 Office Visit Leisa Castellanos [facility] PROFESSIO NAL BUILDING 1.2.840.114 350.1.13.10 4.2.7.2.686 [id number] 044 [id number] [facility] 2024-01-12 09:45:00 2024-01-12 10:00:00 Machine Bander And Cellophaner Visit Pob, Adc Lab Main Oskar Iqbal [facility] NAL BUILD[facility] 1.2.840.114 350.1.13.10 4.2.7.2.686 [id number] [facility] 2024-01-12 09:45:00 2024-01-12 09:45:00 Outpatient R FEDERICO OSKAR [facility] [id number] [facility] 2023-12-23 13:45:00 2023-12-23 14:31:45 Outpatient R CHARLES WALDRON VIEN [facility] [id number] [facility] 2023-12-23 13:45:00 2023-12-23 14:31:45 Office Visit Charles Waldron [facility] BUILD[facility] 1.2.840.114 350.1.13.10 4.2.7.2.686 [id number] [facility] 2023-12-23 11:00:00 2023-12-23 11:00:00 Outpatient R DIO VASQUEZ CRAIG [facility] [id number] [facility] 2023-12-22 10:15:00 2023-12-22 11:55:57 Outpatient R TYLER POTTS [facility] [id number] [facility] 2023-12-22 10:15:00 2023-12-22 11:55:57 Ancillary Visit Sarah Low Brian A [facility] BUILD[facility] 1.840.114 350.1.13.10 4.2.7.2.686 [id number] [facility] 2023-12-10 15:00:00 2023-12-10 15:00:00 Outpatient CHARLES RAREDONDO [facility] [id number] [facility] 2023-11-13 00:00:00 2023-11-13 12:20:20 Patient Secure Leisa David [facility] BU[facility] 1.840.114 350.1.13.10 4.2.7.2.686 [id number] 044 [id number] [facility] 2023-11-12 00:00:00 2023-11-12 00:00:00 Katerina Henderson MD: [address], [place] [address], [place] [address] , Ph. [facility] - GC_GCBZW_[facility]* [id number] [facility] 2023-10-16 10:30:00 2023-10-16 11:11:25 Outpatient OSKAR DAWKINS [facility] [id number] [facility] 2023-10-16 10:30:00 2023-10-16 11:11:25 Office Visit Aurelio Iqbalssica [facility] BUILDING .840.114 350.1.13.10 4.2.7.2.686 [id number] 044 [id number] [facility] 2023-10-10 12:15:00 2023-10-10 12:30:00 Machine Bander And Cellophaner Visit Pob, Adc Lab Main Federico Oskar [facility] BUILDING 1.840.114 350.1.13.10 4.2.7.2.686 [id number] [facility] 2023-10-10 12:15:00 2023-10-10 12:15:00 Outpatient R OSKAR IQBAL [facility] [id number] [facility] 2023-10-03 00:00:00 2023-10-03 00:00:00 Katerina Henderson MD: Usman [address], [address], [place] [id number] , Ph. GC_GCBZW_Ka diyala_S PRIV [facility] - GC_GCBZW_Elodia louis [place]* [id number] [facility] 2023-09-27 00:00:00 2023-09-27 00:00:00 Outpatient GC_GCBZW_Ka diyala_S PRIV PRIV [id number] [facility] 2023-09-26 00:00:00 2023-09-26 00:00:00 Telephone Oskar Iqbal [facility] 1.2.840.114 350.1.13.10 4.2.7.2.686 [id number] 044 [id number] [facility] 2023-09-19 00:00:00 2023-09-19 00:00:00 Katerina Henderson MD: Usman Mars[address], [place] [id number] , Ph. GC_GCBZW_Ka diyala_S PRIV [facility] - GC_GCBZW_Elodia louis [place]* [id number] [facility] 2023-09-18 00:00:00 2023-09-18 00:00:00 Outpatient GC_GCBZW_Ka diyala_S PRIV PRIV [id number] [facility] 2023-08-29 00:00:00 2023-08-29 00:00:00 Outpatient GC_GCBZW_Ka diyala_S PRIV PRIV [id number] [facility] 2023-08-20 00:00:00 2023-08-20 00:00:00 Outpatient GC_GCBZW_Ka diyala_S [facility] [id number] [facility] 2023-08-20 00:00:00 2023-08-20 00:00:00 Dena Frank, KEEPER HELPER: [address], [place] [address] , Ph. [facility] - GC_GCBZW_[facility]* [id number] [facility] 2023-08-08 00:00:00 2023-08-08 00:00:00 RefLeisa Collazo [facility] 1.2.840.114 350.1.13.10 4.2.7.2.686 [id number] 044 [id number] [facility] 2023-07-30 00:00:00 2023-07-30 00:00:00 Patient Secure Msg Doctor Unassigned, [place] [facility] 1.2.840.114 350.1.13.10 4.2.7.2.686 [id number] 044 [id number] [facility] 2023-07-30 00:00:00 2023-07-30 00:00:00 Patient Secure Msg Doctor Unassigned, [place] [facility] 1.2.840.114 350.1.13.10 4.2.7.2.686 [id number] 044 [id number] [facility] 2023-07-22 00:00:00 2023-07-22 00:00:00 Telephone Oskar Iqbal [facility] 1.2.840.114 350.1.13.10 4.2.7.2.686 [id number] 044 [id number] [facility] 2023-07-17 10:30:00 2023-07-17 11:05:39 Outpatient R OSKAR IQBAL [facility] [id number] [facility] 2023-07-17 10:30:00 2023-07-17 11:05:39 [facility] 1.2.840.114 350.1.13.10 4.2.7.2.686 [id number] 044 [id number] [facility] 2023-07-17 00:00:00 2023-07-17 00:00:00 Refill Leisa Castellanos [facility] BUILD[facility] 1.2.840.114 350.1.13.10 4.2.7.2.686 [id number] 044 [id number] [facility] 2023-07-15 00:00:00 2023-07-15 00:00:00 Refill Leisa Castellanos [facility] BU[facility] 1.2.840.114 350.1.13.10 4.2.7.2.686 [id number] 044 [id number] [facility] 2023-07-09 13:30:00 2023-07-09 13:45:00 Machine Bander And Cellophaner Visit Pob, Adc Lab Main Oskar Iqbal [facility] BUILDING 1.2.840.114 350.1.13.10 4.2.7.2.686 [id number] [facility] 2023-07-09 13:30:00 2023-07-09 13:30:00 Outpatient R OSKAR IQBAL [facility] [id number] [facility] 2023-07-03 00:00:00 2023-07-03 00:00:00 Refill Leisa Castellanos [facility] BU[facility] 1.2.840.114 350.1.13.10 4.2.7.2.686 [id number] 044 [id number] [facility] 2023-06-06 00:00:00 2023-06-06 00:00:00 Refill LigiaLeisa manning [facility] BUILD[facility] 1.2840.114 350.1.13.10 4.2.7.2.686 [id number] 044 [id number] [facility] 2023-05-22 00:00:00 2023-05-22 00:00:00 Refill LigiaLeisa manning [facility] 1.2840.114 350.1.13.10 4.2.7.2.686 [id number] 044 [id number] [facility] 2023-04-16 15:15:00 2023-04-16 16:43:47 Outpatient R DIO VASQUEZ CRAIG [facility] [id number] [facility] 2023-04-16 15:15:00 2023-04-16 16:43:47 Ancillary Visit Crystal Booker Craig L [facility] 1.2840.114 350.1.13.10 4.2.7.2.686 [id number] [facility] 2023-04-16 00:00:00 2023-04-16 00:00:00 Orders Only Doctor Unassigned, [place] [facility] 1.2.114 350.1.13.10 4.2.7.2.686 [id number] 009 [id number] [facility] 2023-04-14 00:00:00 2023-04-14 00:00:00 Telephone Leisa Castellanos [facility] 1.284.114 350.1.13.10 4.2.7.2.686 [id number] 044 [id number] [facility] 2023-04-10 09:30:00 2023-04-10 10:44:29 Ancillary Visit Sarah Low Jessica [facility] 1.2.840.114 350.1.13.10 4.2.7.2.686 [id number] [facility] 2023-04-09 00:00:00 2023-04-09 00:00:00 Patient Secure Msg Doctor Unassigned, [place] [facility] 1.2840.114 350.1.13.10 4.2.7.2.686 [id number] [id number] [facility] 2023-04-01 00:00:00 2023-04-01 00:00:00 Outpatient GC_GCBZW_Ka diyala_S PRIV PRIV [id number] [facility] 2023-04-01 00:00:00 2023-04-01 00:00:00 Outpatient GC_GCBZW_Ka diyala_S PRIV PRIV [id number] [facility] 2023-03-27 00:00:00 2023-03-27 00:00:00 Telephone Oskar Iqbal [facility] 1..840.114 350.1.13.10 4.2.7.2.686 [id number] 044 [id number] [facility] 2023-03-20 00:00:00 2023-03-20 00:00:00 Orders Only Doctor Unassigned, [place] [facility] 1.840.114 350.1.13.10 4.2.7.2.686 [id number] [id number] [facility] 2023-03-20 00:00:00 2023-03-20 00:00:00 Patient Secure Msg Leisa Castellanos [facility] 1.2.840.114 350.1.13.10 4.2.7.2.686 [id number] 044 [id number] [facility] 2023-03-20 00:00:00 2023-03-20 00:00:00 Patient Secure Msg Doctor Unassigned, [place] [facility] 1.2.840.114 350.1.13.10 4.2.7.2.686 [id number] [facility] 2023-03-19 14:40:00 2023-03-19 14:40:00 Outpatient R LEISA CASTELLANOS [facility] [id number] [facility] 2023-03-18 00:00:00 2023-03-18 00:00:00 Orders Only Doctor Unassigned, [place] [facility] 1.2.840.114 350.1.13.10 4.2.7.2.686 [id number] 009 [id number] [facility] 2023-03-17 11:27:37 2023-03-17 23:59:00 Hospital Encounter Oskar Iqbal [facility] 1..840.114 350.1.13.10 4.2.7.2.686 [id number] [facility] 2023-03-17 11:00:00 2023-03-17 11:05:30 Outpatient R OSKAR IQBAL [facility] [id number] [facility] 2023-03-17 11:00:00 2023-03-17 11:05:30 Office Visit Oskar Iqbal [facility] 1..840.114 350.1.13.10 4.2.7.2.686 [id number] 044 [id number] [facility] 2023-03-17 00:00:00 2023-03-17 00:00:00 Telephone Oskar Iqbal [facility] 1.2.840.114 350.1.13.10 4.2.7.2.686 [id number] 044 [id number] [facility] 2023-03-13 00:00:00 2023-03-13 00:00:00 Outpatient GC_GCBZW_Ka diyala_S PRIV PRIV [id number] [facility] 2023-03-13 00:00:00 2023-03-13 00:00:00 Outpatient GC_GCBZW_Ka diyala_S PRIV PRIV [id number] [facility] 2023-03-13 00:00:00 2023-03-13 00:00:00 Orders Only Doctor Unassigned, [place] [facility] 1..840.114 350.1.13.10 4.2.7.2.686 [id number] [id number] [facility] 2023-03-10 12:15:00 2023-03-10 12:30:00 Machine Bander And Cellophaner Visit Pob, Adc Lab Main Leisa Castellanos [facility] BUILD[facility] 1..840.114 350.1.13.10 4.2.7.2.686 [id number] [facility] 2023-03-10 12:15:00 2023-03-10 12:15:00 Outpatient R LEISA CASTELLANOS [facility] [id number] [facility] 2023-03-06 00:00:00 2023-03-06 00:00:00 Outpatient GC_GCBZW_Ka diyala_S PRIV PRIV [id number] [facility] 2023-03-06 00:00:00 2023-03-06 00:00:00 Outpatient GC_GCBZW_Ka diyala_S PRIV PRIV [id number] [facility] 2023-02-28 11:20:00 2023-02-28 11:20:00 Outpatient R LEISA CASTELLANOS [facility] [id number] [facility] 2023-02-20 00:00:00 2023-02-20 00:00:00 Outpatient GC_GCBZW_Ka diyala_S PRIV PRIV [id number] [facility] 2023-02-18 00:00:00 2023-02-18 00:00:00 [facility] 1.2.840.114 350.1.13.10 4.2.7.2.686 [id number] 044 [id number] [facility] 2023-02-17 00:00:00 2023-02-17 00:00:00 Outpatient GC_GCBZW_Ka diyala_S PRIV PRIV [id number] [facility] 2023-02-10 00:00:00 2023-02-10 00:00:00 Outpatient GC_GCBZW_Ka diyala_S PRIV PRIV [id number] [facility] 2023-01-09 00:00:00 2023-01-09 00:00:00 Telephone Leisa Castellanos [facility] 1..840.114 350.1.13.10 4.2.7.2.686 [id number] 044 [id number] [facility] 2023-01-07 00:00:00 2023-01-07 00:00:00 Orders Only Doctor Unassigned, [place] [facility] 1..840.114 350.1.13.10 4.2.7.2.686 [id number] 009 [id number] [facility] 2022-12-30 00:00:00 2022-12-30 00:00:00 Outpatient R LEISA CASTELLANOS [facility] [id number] [facility] 2022-12-27 00:00:00 2022-12-27 00:00:00 Telephone Leisa Castellanos [facility] 1..840.114 350.1.13.10 4.2.7.2.686 [id number] [facility] 2022-12-26 00:00:00 2022-12-26 00:00:00 Patient Secure Msg Leisa Castellanos [facility] 1..840.114 350.1.13.10 4.2.7.2.686 [id number] 044 [id number] [facility] 2022-12-24 00:00:00 2022-12-24 00:00:00 Orders Only Doctor Unassigned, [place] [facility] 1.2.840.114 350.1.13.10 4.2.7.2.686 [id number] [id number] [facility] 2022-12-02 00:00:00 2022-12-02 00:00:00 Orders Only Doctor Unassigned, [place] [facility] 1.2840.114 350.1.13.10 4.2.7.2.686 [id number] [facility] 2022-11-18 00:00:00 2022-11-18 00:00:00 Patient Secure Msg Leisa Castellanos [facility] 1.2.840.114 350.1.13.10 4.2.7.2.686 [id number] 044 [id number] [facility] 2022-11-15 11:00:00 2022-11-15 13:01:04 Outpatient R LEISA CASTELLANOS [facility] [id number] [facility] 2022-11-15 11:00:00 2022-11-15 13:01:04 Office Visit Leisa Castellanos [facility] 1.2.840.114 350.1.13.10 4.2.7.2.686 [id number] 044 [id number] [facility] 2022-11-13 00:00:00 2022-11-13 00:00:00 Refill Leisa Castellanos [facility] 1.2.840.114 350.1.13.10 4.2.7.2.686 [id number] 044 [id number] [facility] 2022-11-07 12:15:00 2022-11-07 12:30:00 Machine Bander And Cellophaner Visit Pob, Adc Lab Main Leisa Castellanos [facility] 1.2.840.114 350.1.13.10 4.2.7.2.686 [id number] 353 [id number] [facility] 2022-11-07 12:15:00 2022-11-07 12:15:00 Outpatient R VIVIANGRETTALEISA [facility] [id number] [facility] 2022-11-07 00:00:00 2022-11-07 00:00:00 Orders Only Doctor Unassigned, [place] [facility] 1.2.840.114 350.1.13.10 4.2.7.2.686 [id number] [id number] [facility] 2022-10-29 00:00:00 2022-10-29 00:00:00 Patient Secure Msg Leisa Castellanos [facility] 1.2.840.114 350.1.13.10 4.2.7.2.686 [id number] 044 [id number] [facility] 2022-09-23 00:00:00 2022-09-23 00:00:00 Telephone Leisa Castellanos [facility] 1.2.840.114 350.1.13.10 4.2.7.2.686 [id number] 044 [id number] [facility] 2022-09-19 00:00:00 2022-09-19 00:00:00 Refill Leisa Castellanos [facility] 1.2.840.114 350.1.13.10 4.2.7.2.686 [id number] 044 [id number] [facility] 2022-09-19 00:00:00 2022-09-19 00:00:00 Telephone Viviangretta Leisa [facility] 1.2.840.114 350.1.13.10 4.2.7.2.686 [id number] 044 [id number] [facility] 2022-08-15 15:40:00 2022-08-15 17:35:43 Outpatient R LEISA CASTELLANOS [facility] [id number] [facility] 2022-08-15 15:40:00 2022-08-15 17:35:43 Office Visit Leisa Castellanos [facility] 1.20.114 350.1.13.10 4.2.7.2.686 [id number] 044 [id number] [facility] 2022-08-02 12:45:00 2022-08-02 13:00:00 Machine Bander And Cellophaner Visit Pob, Adc Lab Main [facility] BUILDING 1.2.114 350.1.13.10 4.2.7.2.686 [id number] [facility] 2022-08-02 12:45:00 2022-08-02 12:45:00 Outpatient R LEISA CASTELLANOS [facility] [id number] [facility] 2022-06-06 00:00:00 2022-06-06 00:00:00 Telephone Leisa Castellanos [facility] 1..114 350.1.13.10 4.2.7.2.686 [id number] 044 [id number] [facility] 2022-06-06 00:00:00 2022-06-06 00:00:00 Orders Only Doctor Unassigned, [place] [facility] 1..114 350.1.13.10 4.2.7.2.686 [id number] [id number] [facility] 2022-05-27 00:00:00 2022-05-27 00:00:00 Refill Leisa Castellanos [facility] 1..114 350.1.13.10 4.2.7.2.686 [id number] 044 [id number] [facility] 2022-05-09 14:40:00 2022-05-09 14:40:00 Office Visit Leisa [facility] 1.2.840.114 350.1.13.10 4.2.7.2.686 [id number] 044 [id number] [facility] 2022-05-09 14:40:00 2022-05-09 14:29:41 Outpatient R LEISA CASTELLANOS [facility] [id number] [facility] 2022-05-08 00:00:00 2022-05-08 00:00:00 Telephone Leisa Castellanos [facility] 1.2.840.114 350.1.13.10 4.2.7.2.686 [id number] 044 [id number] [facility] 2022-05-02 00:00:00 2022-05-02 00:00:00 Telephone Leisa Castellanos [facility] 1.2.840.114 350.1.13.10 4.2.7.2.686 [id number] 044 [id number] [facility] 2022-05-01 15:20:00 2022-05-01 16:30:26 Outpatient R LEISA CASTELLANOS [facility] [id number] [facility] 2022-05-01 15:20:00 2022-05-01 16:30:26 Office Visit Leisa Castellanos [facility] 1.2.840.114 350.1.13.10 4.2.7.2.686 [id number] 044 [id number] [facility] 2022-04-29 00:00:00 2022-04-29 00:00:00 Patient Secure Msg Leisa Castellanos [facility] 1.2.840.114 350.1.13.10 4.2.7.2.686 [id number] 044 [id number] [facility] 2022-03-25 00:00:00 2022-03-25 00:00:00 Telephone Emanuel Leisa [facility] 1.2.840.114 350.1.13.10 4.2.7.2.686 [id number] [facility] 2022-03-11 00:00:00 2022-03-11 00:00:00 Patient Secure Msg Doctor Unassigned, [place] [facility] 1.2.840.114 350.1.13.10 4.2.7.2.686 [id number] 019 [id number] [facility] 2022-02-19 00:00:00 2022-02-19 00:00:00 Telephone Emanuel [facility] 1.2840.114 350.1.13.10 4.2.7.2.686 [id number] [facility] 2022-02-19 00:00:00 2022-02-19 00:00:00 Orders Only Doctor Unassigned, [place] [facility] 1.2.840.114 350.1.13.10 4.2.7.2.686 [id number] [facility] 2022-02-06 00:00:00 2022-02-06 00:00:00 Telephone Ligianigel [facility] 1.2.840.114 350.1.13.10 4.2.7.2.686 [id number] 044 [id number] [facility] 2022-02-06 00:00:00 2022-02-06 00:00:00 Telephone Emanuel [facility] 1.2.840.114 350.1.13.10 4.2.7.2.686 [id number] [id number] [facility] 2022-02-05 15:40:00 2022-02-05 16:51:44 Outpatient R LEISA CASTELLANOS [facility] [id number] [facility] 2022-02-05 15:40:00 2022-02-05 16:51:44 Office Visit Leisa [facility] 1.2.840.114 350.1.13.10 4.2.7.2.686 [id number] [facility] 2022-01-22 11:00:00 2022-01-22 11:15:00 Machine [employer] Visit 2, Adc Lab Leisa Castellanos [facility] 1.2.840.114 350.1.13.10 4.2.7.2.686 [id number] [facility] 2022-01-22 11:00:00 2022-01-22 11:00:00 Outpatient R LEISA CASTELLANOS [facility] [id number] [facility] 2021-12-25 08:00:00 2021-12-25 08:20:00 Telemedici ne Visit Leisa Castellanos [facility] 1.2.840.114 350.1.13.10 4.2.7.2.686 [id number] [facility] 2021-12-25 08:00:00 2021-12-25 08:00:00 Outpatient R LEISA CASTELLANOS [facility] [id number] [facility] 2021-12-25 08:00:00 2021-12-25 08:00:00 Outpatient R LEISA CASTELLANOS [facility] [id number] [facility] 2021-12-21 00:00:00 2021-12-21 00:00:00 Patient Secure Msg Emanuel [facility] 1.2.840.114 350.1.13.10 4.2.7.2.686 [id number] [facility] 2021-12-05 00:00:00 2021-12-05 00:00:00 Patient Secure Msg [facility] 1.2.840.114 350.1.13.10 4.2.7.2.686 [id number] [facility] 2021-11-28 00:00:00 2021-11-28 00:00:00 Patient Secure Msg Leisa Castellanos [facility] 1.2.840.114 350.1.13.10 4.2.7.2.686 [id number] 225 [id number] [facility] 2021-11-13 00:00:00 2021-11-13 00:00:00 Patient Secure Msg Doctor Unassigned, [place] [facility] 1.840.114 350.1.13.10 4.2.7.2.686 [id number] [facility] 2021-11-02 13:20:00 2021-11-02 14:17:40 Outpatient R EMANUEL LEISA [facility] [id number] [facility] 2021-11-02 13:20:00 2021-11-02 14:17:40 Office Visit Leisa Castellanos [facility] 1..840.114 350.1.13.10 4.2.7.2.686 [id number] [facility] 2021-10-04 00:00:00 2021-10-04 00:00:00 Patient Secure Msg Jori Estrada [facility] 1.2.840.114 350.1.13.10 4.2.7.2.686 [id number] [facility] 2021-10-04 00:00:00 2021-10-04 00:00:00 Patient Secure Msg Jori Estrada [facility] 1.2.840.114 350.1.13.10 4.2.7.2.686 [id number] [facility] 2021-10-01 15:30:00 2021-10-01 16:37:07 Outpatient R JORI ESTRADA OGECHUKWU [facility] [id number] [facility] 2021-10-01 15:30:00 2021-10-01 16:37:07 Office Visit Jori Estrada [facility] 1.2.840.114 350.1.13.10 4.2.7.2.686 [id number] [facility] 2021-10-01 10:00:00 2021-10-01 10:00:00 Outpatient R JORI ESTRADA [facility]WU [facility] [id number] [facility] 2021-09-28 11:30:00 2021-09-28 11:45:00 Machine [facility] [employer] Visit 2, [facility] Leisa Castellanos [facility] [id number] [facility] 2021-09-28 11:30:00 2021-09-28 11:30:00 Outpatient R LEISA CASTELLANOS [facility] [id number] [facility] 2021-09-28 10:00:00 2021-09-28 11:00:38 Office Visit Leisa Castellanos [facility] [id number] [facility] 2021-09-28 10:00:00 2021-09-28 11:00:38 Outpatient R LEISA CASTELLANOS [facility] [id number] [facility] 2021-09-28 00:00:00 2021-09-28 00:00:00 Refill Leisa Castellanos [facility] [id number] [facility] Results Test Description Test Time Test Comments Results Resul t Comments Source XR KUB 2024-01-22 01:56:33 EXAM: XR KUB HISTORY: 48 years-old Female; Provided indication: Abdominal Pain . TECHNIQUE: Frontal view of the abdomen and pelvis COMPARISON: None [facility] + [id number] 00:00:00* Test Item Value Reference Range Interpretation Comme nts LMP date: (test code = LMP date:) 11/28/2022 Pap, liquid-based (test code = Pap, liquid-based) asc-US nilm A source (liquid-based cytology): (test code = source (liquid-based cytology):) duicxjrm-jqdgejlswqcn-m aginal HPV high risk DNA (non 16/18) (test code = HPV high risk DNA (non 16/18)) detected not detected A HPV high risk DNA type 16 (test code = HPV high risk DNA type 16) not detected not detected HPV high risk DNA type 18 (test code = HPV high risk DNA type 18) not detected not detected [facility] WITH [id number] 19:32:37* Test Item Value Reference Range Interpretation Comme nts WBC (test code = 6690-2) 6.41 See_Comment [Automated messa ge] The system which generated this result transmitted reference range: 4.30 - 11.10 10*3/?L. The reference range was not used to interpret this result as normal/abnormal. RBC (test code = 789-8) 4.57 See_Comment [Automated messa ge] The system which generated this result transmitted reference range: 3.93 - 5.25 10*6/?L. The reference range was not used to interpret this result as normal/abnormal. HGB (test code = 718-7) 12.6 g/dL 11.6-15.0 HCT (test code = 4544-3) 38.1 % 35.7-45.2 MCV (test code = 787-2) 83.4 fL 80.6-95.5 MCH (test code = 785-6) 27.6 pg 25.9-32.8 MCHC (test code = 786-4) 33.1 g/dL 31.6-35.1 RDW-SD (test code = 58130-6) 38.6 fL 39.0-49.9 L RDW-CV (test code = 788-0) 12.9 % 12.0-15.5 PLT (test code = 777-3) 299 See_Comment [Automated messa ge] The system which generated this result transmitted reference range: 166 - 358 10*3/?L. The reference range was not used to interpret this result as normal/abnormal. MPV (test code = 18756-2) 8.7 fL 9.5-12.9 L NRBC/100 WBC (test code = 8139267950) 0.0 See_Comment [Automated [employer] ssage] The system which generated this result transmitted reference range: 0.0 - 10.0 /100 WBCs. The reference range was not used to interpret this result as normal/abnormal. NRBC x10^3 (test code = 1470673875) See_Comment [Automated [employer] ge] The system which generated this result transmitted reference range: 10*3/?L. The reference range was not used to interpret this result as normal/abnormal. GRAN MAT (NEUT) % (test code = 770-8) 57.5 % IMM GRAN % (test code = 7851508519) 1.20 % LYMPH % (test code = 736-9) 30.7 % MONO % (test code = 5905-5) 6.1 % EOS % (test code = 713-8) 3.4 % BASO % (test code = 706-2) 1.1 % GRAN MAT x10^3(ANC) (test code = 6153397699) 3.68 10*3/uL 1.88-7.09 IMM GRAN x10^3 (test code = 2082464083) 0.08 10*3/uL 0.00-0.06 H LYMPH x10^3 (test code = 731-0) 1.97 10*3/uL 1.32-3.29 MONO x10^3 (test code = 742-7) 0.39 10*3/uL 0.33-0.92 EOS x10^3 (test code = 711-2) 0.22 10*3/uL 0.03-0.39 BASO x10^3 (test code = 704-7) 0.07 10*3/uL 0.01-0.07 Lab Interpretation (test code = 97019-8) Abnormal [facility]10 18:18:31* Test Item Value Reference Range Interpretation Comme nts HGB A1C (test code = 4548-4) 8.4 % 4.0-5.7 H TEODORO (test code = TEODORO) Reference RangesNormal: <5.7%Prediabetes: 5.7 - 6.4%Diabetes: > 6.5% Lab Interpretation (test code = 69232-3) Abnormal [facility] Notes Date/Time Note Provider Source 2024-03-24 16:49:58 Dose adjustment Diabetes mellitus with complication, without long-term current use of insulin - tirzepatide 7.5 mg/0.5 mL subcutaneous injection; inject 7.5 mg under the skin weekly. Start 2.5mg qWeek x 4 Weeks, then increase to 5mg qWeek x 4 Weeks, then increase to 7.5mg qWeek x 4 Weeks, the increase to 10mg qWeek. Dispense: 2 mL; Refill: 5 [facility] - Health 2024-02-11 09:53:28 Pt was dispensed Mounjaro 2.5mg per [facility] pharmacy, Rx was sent for Mounjaro 5mg to same pharmacy, pt requesting refills be [facility] to [facility], medication refill has been forwarded to requested pharmacy. [facility] 2024-01-12 09:45:00 Images from the original note were not included. Venipuncture collection performed by clean technique on the left anticubitus. Total of 1 attempts were made. Slight pressure and a bandage/dressing were applied to the site(s). The patient experienced no complications. The following specimens were processed according to instructions and sent to [facility] laboratories per lab order on 01/12/2024: LT BLUE SST 1 RED LAV 2 PPT DK GREEN (LiHep) DK GREEN (SodH) [place] DK BLUE (K2) DK BLUE (S) ACD Blood Culture NIPT/NTD Patient has been identified by and name and was provided with cup, antiseptic towelette, and clean catch instructions. 1 urine specimen(s) sent. Unpreserved 1 Urine Culture Aptima tube Other urine [facility] 2023-11-17 09:00:41 Addended by: RADHA FRAGA V on: 11/17/2023 09:00 AM Modules accepted: Orders [facility] 2023-11-17 08:57:05 Referral renewed from order placed on 03/17/2023 [facility] 2023-10-10 12:15:00 Images from the original note were not included. Venipuncture collection performed by clean technique on the left anticubitus. Total of 1 attempts were made. Slight pressure and a bandage/dressing were applied to the site(s). The patient experienced no complications. The following specimens were processed according to instructions and sent to [facility] laboratories per lab order on 10/10/2023: LT BLUE SST 1 RED LAV 1 PPT DK GREEN (LiHep) DK GREEN (SodH) [place]ON DK BLUE (K2) DK BLUE (S) ACD Blood Culture NIPT/NTD [facility] 2023-09-26 08:17:59 Images from the original note were not included. Medical records received Center, placed in SUPERVISOR IN CHARGE Federico folder for review. Kimberley Lenz [facility] 2023-08-08 13:47:31 Last OV: 07/17/2023 with Huey Iqbal NP Last Refill: 11/15/2022 prescribed by Leisa Castellanos Last Labs Pertaining to Med: HGB A1C (%) Date Value 07/09/2023 9.3 (H) HEMOGLOBIN A1c-Q (% of total Hgb) Date Value 09/28/2021 6.8 (H) CREATININE (mg/dL) Date Value 07/09/2023 0.85 CREATININE-Q (mg/dL) Date Value 09/28/2021 0.69 Future Appt: Future Appointments Provider Department Dept Phone 10/16/2023 10:30 AM Oskar Iqbal, [facility], [place] [phone] Refill request for metformin refilled per ambulatory refill guidelines. CAMP COUNSELOR Tabatha Steele RN [facility] 2023-07-30 15:53:03 Attempted to reach pt by phone, no answer, message left for call to be returned to the office. Will close note and send [employer] message to pt. THI Cobian RN [facility] 2023-07-24 14:59:10 Message left for pt to call the office, need rx benefit information in order to submit PA. CAMP COUNSELOR [facility] 2023-07-22 14:08:24 Tabatha Salgado is a 47 year old female Pt is calling stating [facility] for (naltrexone-bupropion (CONTRAVE) 8-90 mg per tablet ) Please advise Thank you [facility] DELIVERY - [address] [address] CAMP COUNSELOR Andrzej Crowley [facility] 2023-07-18 07:51:59 Images from the original note were not included. Requested Renewals Name from pharmacy: ATORVASTATIN TABS 40MG Will file in chart as: ATORVASTATIN 40 mg tablet Sig: TAKE 1 TABLET AT BEDTIME Disp: 90 tablet Refills: 3 Start: 07/17/2023 Class: eRX For: Mixed hyperlipidemia Last ordered: 8 months ago (11/15/2022) by Leisa Castellanos MD Last refill: 04/21/2023 Rx #: [id number] Cardiovascular: Antilipid - HMG-CoA Reductase Inhibitors Hxitbo4807/17/2023 11:25 PM Protocol Details Valid encounter within last 12 months Total Cholesterol within 360 days LDL within 360 days HDL within 360 days Triglycerides within 360 days AST in normal range and within 360 days ALT in normal range and within 360 days To be filled at: [facility] - [address] Giving me a hard stop, please view medication. CAMP COUNSELOR Zakiya Mcdonald MA [facility] 2023-07-09 13:30:00 Images from the original note were not included. Venipuncture collection performed by clean technique on the left anticubitus. Total of 1 attempts were made. Slight pressure and a bandage/dressing were applied to the site(s). The patient experienced no complications. The following specimens were processed according to instructions and sent to [facility] laboratories per lab order on 07/09/2023: LT BLUE SST 1 RED LAV 2 PPT DK GREEN (LiHep) DK GREEN (SodH) CARLSON DK BLUE (K2) DK BLUE (S) ACD Blood Culture NIPT/NTD Patient has been identified by and name and was provided with cup, antiseptic towelette, and clean catch instructions. 1 urine specimen(s) sent. Unpreserved 1 Urine Culture Aptima tube Other urine [facility] 2023-03-17 11:45:00 Formatting of this n ote might be different from the original. FINDINGS: Normal alignment of lumbar spine. Vertebral bodies are normal height. Mild degenerative disc disease at L3-4, L4-5 and L5-S1. No radiographic signs of fracture or spondylolisthesis. Unremarkable facet joints, sacroiliac joints and soft tissues. ? IMPRESSION 1. Mild multilevel degenerative disc disease of lumbar spine Suggest MRI if PT is not helpful T [facility] 2023-03-10 12:15:00 Formatting of this n ote is different from the original. Images from the original note were not included. Venipuncture collection performed by clean technique on the left anticubitus. Total of 1 attempts were made. Slight pressure and a bandage/dressing were applied to the site(s). The patient experienced no complications. The following specimens were processed according to instructions and sent to [facility] laboratories per lab order on 03/10/2023: LT BLUE SST 1 RED LAV 1 PPT DK GREEN (LiHep) DK GREEN (SodH) [place] DK BLUE (K2) DK BLUE (S) ACD Blood Culture NIPT/NTD Patient has been identified by and name and was provided with cup, antiseptic towelette, and clean catch instructions. 1 urine specimen(s) sent. Unpreserved 1 Urine Culture Aptima tube Other urine [facility] 2023-03-10 08:17:53 Formatting of this n ote might be different from the original. Received lab results back from provider, placed in to be scanned folder. Zakiya Mcdonald MA [facility] 2023-02-18 10:20:12 Formatting of this n ote might be different from the original. Sergio Dent sent radiology report. Placed in providers for review. Caitlin Galarza RN [facility] 2023-01-16 16:10:58 Formatting of this n ote might be different from the original. Printed order and faxed to your [facility] in [place] [phone] Caitlin Galarza RN [facility] 2023-01-16 13:09:13 Formatting of this n ote might be different from the original. Future Procedure Screening for malignant neoplasm of colon - COLONOSCOPY,SCREENING Preferred Location: [place]; Future [facility] 2023-01-09 12:23:42 Formatting of this n ote might be different from the original. Patient has decided she would like to get coloscopy done at your [facility] in [place] [phone] Please send referral and information to them. Oskar Lazcano [facility]
--- NOTE | 2024-04-27 18:55 | RAD REPORT ---
EXAM: CT Head Brain Wo Cont HISTORY: TRAUMA COMPARISON: 06/22/2009 TECHNIQUE: Multiple contiguous axial images were obtained for a CT of the brain without contrast. Sag ittal and coronal reformats were performed. One or more of the following dose reduction techniques were used: Automated exposure control, adjus tment of the mA and kV according to patient size, and iterative reconstruction. Unless otherwise specified, incidental findings do not require dedicated imaging follow-up. FINDINGS: No evidence of hydrocephalus, intracranial hemorrhage, or extra-axial fluid collection. The brain is normal in morphology. Large right posterior parietal scalp hematoma. The calvarium is intact. The visualized paranasal sinu ses and mastoid air cells are essentially clear. IMPRESSION: No evidence of acute intracranial abnormality. Large right posterior parietal scalp hematoma.
--- NOTE | 2024-04-27 19:22 | RAD REPORT ---
EXAM: CT C Spine Wo Con HISTORY: Fall COMPARISON: None TECHNIQUE: Multiple contiguous axial images were obtained in a CT of the cervical spine without IV co ntrast. Sagittal and coronal reformats were performed. One or more of the following dose reduction techniques were used: Automated exposure control, adjustment of the mA and kV according to patient si ze, and iterative reconstruction. Unless otherwise specified, incidental findings do not require dedicated imaging follow-up. FINDINGS: The vertebral bodies and intervertebral discs demonstrate normal height and alignment without fractur e or subluxation. No degenerative changes are present. No prevertebral soft tissue swelling is seen. The posterior facets are well aligned. Normal alignment of the skull base with the cervical spine is seen. The lung apices are unremarkable. The cervical soft tissues are unremarkable. IMPRESSION: No evidence of acute osseous abnormality of the cervical spine.
[2024-04-27] MEDS ORDERED: Mastisol Adhesive Liq ONE (19:27)
--- NOTE | 2024-04-27 19:32 | EDPHYS ---
Physician Documentation [facility] Name: Tabatha Berrios Age: 48 yrs Sex: Female : 1975 Arrival Date: 04/27/2024 Time: 17:06 Bed 19 Private MD: ED Physician Fernando Parks HPI: 04/27 19:28 This 48 yrs old Female presents to ER via Ambulatory with complaints of Fall sp3 Injury, Head Injury Without LOC-Adult. 19:28 48-year-old female with history of diabetes, hyperlipidemia, hypertension now presents sp3 to the ED with chief complaint mechanical fall with injury to the occiput and mild neck pain as well as right elbow abrasion/laceration. Injury occurred just prior to arrival. No loss of consciousness reported. She denies any other pain or injury review of systems otherwise negative.. Historical: - Allergies: 17:46 NKDA; jb4 - PMHx: 17:46 diabetes mellitus; Hypercholesterolemia; Hypertensive disorder; jb4 - PSHx: 17:46 None; jb4 - Immunization history:: Adult Immunizations up to date. - Infectious Disease History:: Denies. - Social history:: Smoking status: Patient denies any tobacco usage or history of. ROS: 19:29 Constitutional: Negative for fever, chills, and weight loss, Eyes: Negative for injury, sp3 pain, redness, and discharge, ENT: Negative for injury, pain, and discharge, Neck: Negative for injury, pain, and swelling, Cardiovascular: Negative for chest pain, palpitations, and edema, Respiratory: Negative for shortness of breath, cough, wheezing, and pleuritic chest pain, Abdomen/GI: Negative for abdominal pain, nausea, vomiting, diarrhea, and constipation, Back: Negative for injury and pain, MS/Extremity: Negative for injury and deformity, Skin: Negative for injury, rash, and discoloration, Psych: Negative for depression, anxiety, suicide ideation, homicidal ideation, and hallucinations, Allergy/Immunology: Negative for hives, rash, and allergies, Endocrine: Negative for neck swelling, polydipsia, polyuria, polyphagia, and marked weight changes, Hematologic/Lymphatic: Negative for swollen nodes, abnormal bleeding, and unusual bruising, 19:29 All other systems are negative, Exam: 19:29 Constitutional: This is a well developed, well nourished patient who is awake, alert, sp3 and in no acute distress. Eyes: Pupils equal round and reactive to light, extra-ocular motions intact. Lids and lashes normal. Conjunctiva and sclera are non-icteric and not injected. Cornea within normal limits. Periorbital areas with no swelling, redness, or edema. ENT: Nares patent. No nasal discharge, no septal abnormalities noted. External auditory canals are clear. Oropharynx with no redness, swelling, or masses, exudates, or evidence of obstruction, uvula midline. Mucous membranes moist. Neck: Trachea midline, no thyromegaly or masses palpated, and no cervical lymphadenopathy. Supple, full range of motion without nuchal rigidity, or vertebral point tenderness. No Meningismus. Chest/axilla: Normal chest wall appearance and motion. Nontender with no deformity. No lesions are appreciated. Cardiovascular: Regular rate and rhythm with a normal S1 and S2. No gallops, murmurs, or rubs. Normal PMI, no JVD. No pulse deficits. Respiratory: Lungs have equal breath sounds bilaterally, clear to auscultation and percussion. No rales, rhonchi or wheezes noted. No increased work of breathing, no retractions or nasal flaring. Abdomen/GI: Soft, non-tender, with normal bowel sounds. No distension or tympany. No guarding or rebound. No evidence of tenderness throughout. Back: No spinal tenderness. No costovertebral tenderness. Full range of motion. Neuro: Awake and alert, GCS 15, oriented to person, place, time, and situation. Cranial nerves II-XII grossly intact. Motor strength 5/5 in all extremities. Sensory grossly intact. Cerebellar exam normal. Normal gait. Psych: Awake, alert, with orientation to person, place and time. Behavior, mood, and affect are within normal limits. 19:29 Head/face: Large scalp hematoma posteriorly noted. No laceration on the scalp.. 19:29 Musculoskeletal/extremity: Patient to right elbow over the bursa with 3 mm laceration noted. No active bleeding. Steri-Strip will be applied.. Vital Signs: 17:45 BP 174 / 112; Pulse 93; Resp 15; Temp 98.6(O); Pulse Ox 100% on R/A; Weight 89.36 kg jb4 (R); Height 5 ft. 3 in. ; Pain 9/10; 19:00 BP 139 / 78; Pulse 99; Resp 18; Pulse Ox 100% on R/A; ar6 17:45 Body Mass Index 34.90 (89.36 kg, 160.02 cm) jb4 17:45 Pain Scale: Adult jb4 Haider Coma Score: 20:15 Eye Response: spontaneous(4). Motor Response: obeys commands(6). Verbal Response: ar6 oriented(5). Total: 15. Trauma Score (Adult): 20:15 Eye Response: spontaneous(1); Verbal Response: oriented(1); Motor Response: obeys ar6 commands(2); Systolic BP: > 89 mm Hg(4); Respiratory Rate: 10 to 29 per min(4); Haider Score: 15; Trauma Score: 12 MDM: 17:34 Medical Screening Exam initiated sp3 19:01 Data reviewed: vital signs, nurses notes. sp3 19:30 ED course: CT scan of the head and C-spine negative. Steri-Strip and wound care applied sp3 to the right elbow. Patient will be sent home on tramadol and given [place] p.o. here in the ED prior to discharge.. 04/27 17:33 Order name: CT Head Brain wo Cont; Complete Time: 19:01 sp3 04/27 19:10 Order name: C Spine Wo Con; Complete Time: 19:26 EDMS Administered Medications: 19:50 Drug: HYDROcodone-acetaminophen PO 5 mg-325 mg 2 tabs PO once Route: PO; ar6 20:15 Follow up: Response: No adverse reaction ar6 Disposition Summary: 04/27/24 19:32 Discharge Ordered Notes: Location: Home sp3 Condition: Stable sp3 Diagnosis - Scalp hematoma, closed head injury, right elbow abrasion, right elbow laceration sp3 Followup: sp3 - With: Private Physician - When: Upon discharge from the Emergency Department - Reason: Continuance of care Discharge Instructions: - Discharge Summary Sheet sp3 - Head Injury, Adult sp3 - Nonsutured Laceration Care sp3 Forms: - Medication Reconciliation Form sp3 - Antibiotic Education sp3 - Prescription Opioid Use sp3 - Patient Portal Instructions sp3 - Leadership Thank You Letter sp3 Prescriptions: - Tramadol 50 mg Oral Tablet - take 1 tablet ORAL route every 8 hours as needed; 12 tablet; Refills: 0, sp3 Product Selection Permitted Signatures: Dispatcher [employer] [place] Riggs, RN RN jb4 Fernando Parks MD MD sp3 Rossy Mina RN RN ar6
--- NOTE | 2024-04-27 19:32 | ER ---
Nurse's Notes [facility] Name: Tabatha Berrios Age: 48 yrs Sex: Female : 1975 Arrival Date: 04/27/2024 Time: 17:06 Bed 19 Private MD: Diagnosis: Scalp hematoma, closed head injury, right elbow abrasion, right elbow laceration Presentation: 04/27 17:45 Chief complaint: Patient states: I was on a step stool. When I was getting down I fell jb4 back hitting the back of my head and right elbow. Coronavirus screen: At this time, the client does not indicate any symptoms associated with coronavirus-19. Ebola Screen: No symptoms or risks identified at this time. Initial Sepsis Screen: Does the patient meet any 2 criteria? HR > 90 bpm. Yes Does the patient have a suspected source of infection? No. Patient's initial sepsis screen is negative. Risk Assessment: Do you want to hurt yourself or someone else? Patient reports no desire to harm self or others. Onset of symptoms was April 27, 2024. Transition of care: patient was not received from another setting of care. 17:45 Method Of Arrival: Ambulatory jb4 17:45 Acuity: ANGEL 3 jb4 Triage Assessment: 17:46 General: Appears in no apparent distress. uncomfortable, Behavior is calm, cooperative, jb4 appropriate for age. Pain: Complains of pain in right parietal area, base of the skull, right antecubital area and neck Pain does not radiate. Pain currently is 9 out of 10 on a pain scale. Neuro: Level of Consciousness is awake, alert, obeys commands, Oriented to person, place, time, situation. Cardiovascular: Patient's skin is warm and dry. Respiratory: Airway is patent Respiratory effort is even, unlabored, Respiratory pattern is regular, symmetrical. Derm: Skin is pink, warm \T\ dry. Musculoskeletal: Circulation, motion, and sensation intact. Range of motion: intact in all extremities. Injury Description: Laceration sustained to right antecubital area is clean, full thickness, 0.5 to 2.5 cm long, was sustained 1-2 hours ago. a small amount of bleeding noted at this time. Historical: - Allergies: 17:46 NKDA; jb4 - PMHx: 17:46 diabetes mellitus; Hypercholesterolemia; Hypertensive disorder; jb4 - PSHx: 17:46 None; jb4 - Immunization history:: Adult Immunizations up to date. - Infectious Disease History:: Denies. - Social history:: Smoking status: Patient denies any tobacco usage or history of. Screenin:04 [facility] ED Fall Risk Assessment (Adult) History of falling in the last 3 months, ar6 including since admission Yes- single mechanical fall (1 pt) Confusion or Disorientation No (0 pts) Intoxicated or Sedated No (0 pts) Impaired Gait No (0 pts) Mobility Assist Device Used No (0 pt) Altered Elimination No (0 pt) Score/Fall Risk Level 0 - 2 = Low Risk Oriented to surroundings, Maintained a safe environment, Educated pt \T\ family on fall prevention, incl call for assistance when getting out of bed, Hourly rounding (assess needs \T\ fall precautionary measures) done. Abuse screen: Denies threats or abuse. Denies injuries from another. Nutritional screening: No deficits noted. Tuberculosis screening: No symptoms or risk factors identified. Assessment: 19:00 General: Appears in no apparent distress. comfortable, Behavior is calm, cooperative, ar6 appropriate for age. Pain: Complains of pain in scalp Pain currently is 9 out of 10 on a pain scale. Neuro: Level of Consciousness is awake, alert, obeys commands, Oriented to person, place, time, situation. Cardiovascular: Capillary refill < 3 seconds. Respiratory: Airway is patent. GI: Abdomen is round non-distended. : No signs and/or symptoms were reported regarding the genitourinary system. EENT: Oral mucosa is moist. Derm: Skin is healthy with good turgor, laceration to right elbow; nodule to posterior head. Musculoskeletal: No signs and/or symptoms reported regarding the musculoskeletal system. Vital Signs: 17:45 BP 174 / 112; Pulse 93; Resp 15; Temp 98.6(O); Pulse Ox 100% on R/A; Weight 89.36 kg jb4 (R); Height 5 ft. 3 in. ; Pain 9/10; 19:00 BP 139 / 78; Pulse 99; Resp 18; Pulse Ox 100% on R/A; ar6 17:45 Body Mass Index 34.90 (89.36 kg, 160.02 cm) [facility] 17:45 Pain Scale: Adult jb4 [place] Coma Score: 20:15 Eye Response: spontaneous(4). Motor Response: obeys commands(6). Verbal Response: ar6 oriented(5). Total: 15. Trauma Score (Adult): 20:15 Eye Response: spontaneous(1); Verbal Response: oriented(1); Motor Response: obeys ar6 commands(2); Systolic BP: > 89 mm Hg(4); Respiratory Rate: 10 to 29 per min(4); Haider Score: 15; Trauma Score: 12 ED Course: 17:07 Patient arrived in ED. im 17:16 Fernando Parks MD is Attending Physician. sp3 17:46 Triage completed. jb4 17:46 Arm band placed on right wrist. jb4 18:18 CT Head Brain wo Cont In Process Unspecified. EDMS 18:49 Rossy Mina, RN is Primary Nurse. ar6 19:04 No apparent distress. Awaiting radiology results. ar6 19:04 Patient has correct armband on for positive identification. Bed in low position. Call ar6 light in reach. Side rails up X 1. Provided Education on: plan of care. Client placed on continuous cardiac and pulse oximetry monitoring. NIBP monitoring applied. Door closed. Moved to private room. Warm blanket given. 19:17 C Spine Wo Con In Process Unspecified. EDMS 20:15 No provider procedures requiring assistance completed. Patient did not have IV access ar6 during this emergency room visit. Administered Medications: 19:50 Drug: HYDROcodone-acetaminophen PO 5 mg-325 mg 2 tabs PO once Route: PO; ar6 20:15 Follow up: Response: No adverse reaction ar6 Medication: 19:04 VIS not applicable for this client. ar6 Outcome: 19:32 Discharge ordered by . sp3 20:15 Discharged to home ambulatory, ar6 20:15 Condition: good 20:15 Discharge instructions given to patient, family, 20:16 Patient left the ED. ar6 Signatures: Dispatcher [employer] EDMS Montana Rothman RN RN jb4 Fernando Parks MD MD sp3 [address] [place] Rossy Mina RN RN ar6
[2024-04-27] MEDS ORDERED: HYDROCODONE/APAP 5/325 MG TAB ONE (19:51)
[2024-04-27 20:21] VITALS: TEMP 98.6; O2SAT 100
[2024-04-27 20:23] VITALS: BP 139/78
== END 2024-04-27 20:16 | disposition home or self-care (01) ==
LOC: ER 17:06
DX: S00.03XA Contusion of scalp, initial encounter (principal); S51.011A Laceration without foreign body of right elbow, initial encounter; S50.311A Abrasion of right elbow, initial encounter; W18.30XA Fall on same level, unspecified, initial encounter
CPT/HCPCS: 70450; 72125